=== PATIENT | female | born 1950 | race Caucasian/White ===

== ENCOUNTER → 2017-07-28 | Outpatient (CLI) | payer MEDICARE, OTHER ==
[~2017-07-28] MED LIST: ALEVE220 MG PO; ALKA-SELTZER H1 EACH PO; AMITRIPTYLINE H10 M3 PO; CHOLESTYRAMINE P4 GM PO; COLACE100 MG PO; ELIQUIS5 MG PO; FLAX OIL1000 MG PO; HYDROCHLOROTHIAZIDE; LISINOPRIL; LISINOPRIL-HCT1 EAC1 PO; OMEGA-31000 M1 PO; TRAMADOL 50 MG50 MG PO; TUMS PO; UNICOMPLEX M TA1 TA1 PO; VITAMIN D32000 UNI1 PO; VITAMIN D3400 UNIT PO; ZANTAC 150MG T150 MG PO
--- NOTE | 2017-08-03 08:35 | PAINCON ---
[facility] [address] [place] [address] PAIN MANAGEMENT CONSULTATION Name: DEEPIKA LENTZ [id number] Admission: 07/28/17 Attend Phys: Lana Yi MD Discharge: Date of : 50 Report #: [id number] THIS REPORT FOR: //name// CC: Eddie Yi DATE OF SERVICE: 07/28/2017 FOLLOWUP COMPLAINT: "Things were going pretty well, but the pain has returned." FOLLOWUP HISTORY: The patient is a 67-year-old female who has been followed in the pain clinic because of pain and discomfort in the anterior thigh area. She has undergone epidural steroid injections in the past. She finds that these have been beneficial. She did notice 100% relief after injections in the past. Over the last few months, she has noted some worsening of her pain and discomfort. It involves the anterior thigh area. She states that she noted a worsening of the pain over the last few weeks. She had gone with a family member to a tournament. There was a lot of driving to [place]. After getting in and out of the car many times, she noted some worsening of her pain and discomfort. Notes that her pain is worse when she is walking outside, particular if she is walking uphill, not so much when she is walking on the level. This pain is problematic and caused her to wake up in the night. She does continue to have some problems with fibromyalgia as well. She continues to walk with a cane. Denies any bowel or bladder dysfunction. Has not fallen since we saw her last. She would like to proceed at this juncture with another epidural steroid injection with the hopes that things would continue to improve and she would be more active with less discomfort. ALLERGIES: No known drug allergies. CURRENT MEDICATIONS: Include lisinopril/hydrochlorothiazide 10/12.5 daily, sodium bicarbonate/[place] for heartburn, was taking Elavil at bedtime and is not taking this medication, was taking Zantac 150 mg b.i.d., she is not taking this medication any longer either. PAIN CLINIC ASSESSMENT: 1. The patient has osteoarthritis in her shoulders as well as in her lower back. 2. Height 5 feet 6 inches, weight 256 pounds, BMI is 41.4. 3. Vital signs: Blood pressure 147/75, heart rate 69, respiratory rate 16, room air saturation is 97.0, temperature 98.1. 4. Pain intensity is judged to be 6/10, can rise to the level of 10/10. 5. Fall risk: The patient has not fallen in the last 3 months. She does walk with a cane. 6. Blood thinners: The [place] [address] PAIN MANAGEMENT CONSULTATION Name: DEEPIKA LENTZ Room: [facility]#: [id number] Admission: 07/28/17 Attend Phys: Lana Yi MD Discharge: Date of : 50 Report #: [id number] 7. Hypertension: The patient is being treated for hypertension. 8. Opioid use greater than 6 weeks: The patient is not receiving opioid medications for greater than 6 weeks. 9. Risk assessment tool. 10. Functional assessment tool: Pain impact score is 66/70 in regards to general activity, mood, walking ability, work, relationships with others, sleep, enjoyment of life. 11. Recreational drug use: The patient denies use of recreational drugs. 12. Tobacco use: The patient denies use of tobacco. 13. Alcohol: The patient drinks an alcoholic beverage maybe once monthly. PHYSICAL EXAMINATION: GENERAL: The patient is a well-developed, obese female. Appears her stated age. She is alert and oriented x 3. Affect appears appropriate. HEENT: Normocephalic, atraumatic. Extraocular eye muscles intact. No nasal discharge. Hearing within normal limits. NECK: Good range of motion without adenopathy. Abdomen is protuberant. MUSCULOSKELETAL: Normal alignment without significant scoliosis, kyphosis, or lordosis. Has reasonably normal gait, has pain and discomfort in the left anterior thigh in the L3-L4 distribution. Muscle bulk appears symmetrical bilaterally. Muscle strength is judged to be 5/5 for the major muscle groups of the lower extremities. IMPRESSION: 1. Lumbar radiculopathy involving the L3-L4 dermatomal distribution, which has improved with epidural steroid injections. 2. Hypertension. 3. History of ulcers and gastroesophageal reflux disease. 4. Morbid obesity. The patient states that she is trying to increase her activity. RECOMMENDATIONS: We discussed treatment options with the patient. The patient would like to proceed with an epidural steroid injection. Possible complication of the procedure were discussed. They include infection, increased muscle soreness, headache, bleeding, nerve damage, nerve weakness, pain improvement or no improvement in pain. The patient elects to proceed. PROCEDURE NOTE: The patient was placed in the prone position. After appropriate positioning on the table, her back was sterilely prepped with a Betadine solution. Fluoroscopy was used to identify the L3-L4 interspace. Anterior and posterior viewing was performed. Lateral viewing with fluoroscopy was also used. After an appropriate target area was noted, a 25-gauge needle was then advanced into the area. This area was infiltrated with 0.25% bupivacaine. A 17-gauge Tuohy with loss of resistance technique was used to gain access to the epidural space. There was no CSF, heme, or paresthesia. Total of 80 mg Depo-Medrol, 40 mg triamcinolone, and 2 mL of 0.25% [place] [address] PAIN MANAGEMENT CONSULTATION Name: DEEPIKA LENTZ Room: [facility]#: [id number] Admission: 07/28/17 Attend Phys: Lana Yi MD Discharge: Date of : 50 Report #: [id number] was injected. The patient tolerated the procedure well. A Band-Aid was placed. There was no bleeding. The patient was then escorted to the Recovery Room where she remained for an appropriate amount of time. She will follow up in the future as needed. We would like to thank you for letting us participate in her care. We hope she continues to improve. <ELECTRONICALLY SIGNED> By: Lana Yi MD 08/03/17 0835 1423 [id number]. Trevor Yi MD /RENATA
== END ==
LOC: M.PC 02:39
DX: M54.16 Radiculopathy, lumbar region (principal); M19.012 Primary osteoarthritis, left shoulder; M19.011 Primary osteoarthritis, right shoulder; M54.5 Low back pain; M79.7 Fibromyalgia; I10 Essential (primary) hypertension; E66.01 Morbid (severe) obesity due to excess calories; K21.9 Gastro-esophageal reflux disease without esophagitis

== ENCOUNTER 2018-01-23 07:45 | Inpatient (IN) | payer MEDICARE, OTHER ==
[2018-01-12 08:57] LABS: ABSOLUTE EOSINOPHILS 0.1 thou/uL (0.0-0.7); ABSOLUTE LYMPHOCYTES 1.2 thou/uL (0.8-5.3); ABSOLUTE MONOCYTES 0.5 thou/uL (0.0-1.2); ABSOLUTE NEUTROPHILS 2.7 thou/uL (1.6-8.1); BASOPHILS 0.5 %; EOSINOPHILS 2.8 %; HEMOGLOBIN 12.7 gm/dL (12.0-15.0); LYMPHOCYTES 25.8 %; MCH 31.4 pg (26.0-34.0); MCHC 33.3 g/dL (28.0-37.0); MCV 94.3 fL (80.0-100.0); MONOCYTES 11.8 %; MPV 7.7 fl. (7.2-11.1); NUCLEATED RBCS 0 /100WBC; PLATELET COUNT* 265 thou/uL (150-400); POLYS 59.1 %; RBC 4.03 mil/uL (4.20-5.00); RDW-CV 13.7 % (10.5-14.5); WBC 4.5 thou/uL (4.0-11.0)
[2018-01-12 09:09] LABS: APTT 26.9 Seconds (25.0-31.3); PROTIME 9.6 Seconds (9.20-11.50)
[2018-01-12 09:14] LABS: ALBUMIN 3.4 g/dL (3.4-5.0); CALCIUM 8.7 mg/dL (8.5-10.1); CREATININE 0.8 mg/dL (0.6-1.3); POTASSIUM 3.8 mmol/L (3.5-5.1); TOTAL BILIRUBIN 0.4 mg/dL (<0.1-1.0); TOTAL PROTEIN 7.1 g/dL (6.4-8.2)
[2018-01-12 10:10] LABS: ESR (SEDRATE) 48 mm/hr (0-30)
--- NOTE | 2018-01-12 11:42 | EKG ---
[place] [address] ELECTROCARDIOGRAM REPORT Name: DEEPIKA LENTZ Room: PRE IN [facility]#: [id number] Admission: Attend Phys: Desire Andrade Discharge: Date of : 50 Report #: [id number] THIS REPORT FOR: //name// [facility] Test Date: 2018-01-12 Test Time: 09:06:00 Pat Name: DEEPIKATELLO MEDINANES Department: Room: Gender: F Medical Doctor: : 1950 Requested By: Ministerio Beard Order Number: [id number] Reading MD: Jose R Goins Measurements Intervals [place] Rate: 74 P: 45 RI: 139 QRS: -7 QRSD: 97 T: 13 QT: 372 QTc: 413 Interpretive Statements Sinus rhythm No previous ECG available for comparison Electronically Signed On 01-12-2018 11:41:55 CDT by Jose R Goins [email or web address] <ELECTRONICALLY SIGNED> By: Jose R Goins MD, [facility] 01/12/18 1141 0906 0906 Jose R Goins MD, FACC /EPI
[2018-01-13 02:07] LABS: GLYCOHEMOGLOBIN (HGB A1C) 5.3 % (4.8-5.6)
[~2018-01-23] VITALS: Ht 167.6 cm; Wt 112.5 kg
[~2018-01-23 07:45] MED LIST changes: -COLACE100 MG PO; -ELIQUIS5 MG PO; -LISINOPRIL-HCT1 EAC1 PO
[2018-01-23 09:51] VITALS: BP 140/65
[2018-01-23 18:02] VITALS: BP 141/49
[2018-01-23 20:00] VITALS: BP 105/53
[2018-01-24] VITALS: BP 108/46
[2018-01-24 04:00] VITALS: BP 103/44
[2018-01-24 05:10] LABS: HEMATOCRIT 28.5 % (37.0-47.0); HEMOGLOBIN 9.6 gm/dL (12.0-15.0)
[2018-01-24 08:00] VITALS: BP 119/49
[2018-01-24] MEDS ORDERED: COLACE100 MG PO (10:16)
[2018-01-24] MEDS ORDERED: ELIQUIS5 MG PO (10:16)
[2018-01-24] MEDS ORDERED: LISINOPRIL-HCT1 EAC1 PO (12:10)
[2018-01-24 12:11] VITALS: BP 119/49
[2018-01-24 12:36] VITALS: BP 119/49
--- NOTE | 2018-02-02 17:44 | OP ---
[address] [address] OPERATIVE REPORT Name: DEEPIKA LENTZ Room: [address]#: [id number] Admission: 01/23/18 Attend Phys: Desire Andrade Discharge: 01/24/18 Date of : 50 Report #: [id number] THIS REPORT FOR: //name// CC: Mary Castro DICTATED BY: Teddy Gonzales DO DATE OF SERVICE: 01/23/2018 PREOPERATIVE DIAGNOSIS: Left hip degenerative joint disease. POSTOPERATIVE DIAGNOSIS: Left hip degenerative joint disease. PROCEDURE: Left total hip arthroplasty utilizing Biomet G7 total hip system with the following components: 1. 56 mm G7 finned acetabular shell. 2. 40 mm high wall G7 acetabular liner E1. 3. Size 9 micro Taperloc femoral stem, high offset. 4. 40 mm diameter ceramic head with a -3 mm neck. 5. 30 mm and 20 mm acetabular screws. SURGEON: Ministerio Beard DO COMPUTED TOMOGRAPHY TECHNICIAN: DO. Hilario Adler DO ANESTHESIA: General. ESTIMATED BLOOD LOSS: 250 mL. ANTIBIOTICS: 2 grams Ancef IV preoperatively. DRAINS: None. SPECIMENS: None. COMPLICATIONS: None. DISPOSITION: Stable to PACU and will be admitted to the hospital for standard postoperative care. INDICATION FOR PROCEDURE: The patient is a pleasant 67-year-old female who is seen in Orthopedic Clinic with complaints of chronic left hip pain. On x-ray, she was found to have advanced degenerative joint disease of her left hip. Pain was refractory to conservative measures consisting of oral anti-inflammatories, [address] [address] OPERATIVE REPORT Name: TORDEEPIKA L Room: [address]#: [id number] Admission: 01/23/18 Attend Phys: Desire Andrade Discharge: 01/24/18 Date of : 50 Report #: [id number] activity modifications and home physical therapy exercises for much greater than 6 months' duration. Therefore, recommended proceeding with a left total hip arthroplasty. Risks, benefits, complications, indications and alternative treatments were discussed and the patient wished to proceed with surgery today. DESCRIPTION OF PROCEDURE: The patient was seen in the preoperative holding area. Correct operative site, left hip was initialed. The patient was taken back to the operating suite, placed in the supine position on the operating table, given benefit of general anesthetic. The patient was positioned in the normal fashion on the [place] hip traction table. A well-padded perineal post was placed in a normal fashion. The patient was placed in the traction boots bilaterally. Left hip was then prepped and draped in typical fashion. Surgery began with a timeout identifying correct patient, correct procedure, correct operative site, preoperative antibiotics and correct performing surgeon. Next, standard anterior hip incision was made starting roughly 2 cm distal and 2 cm lateral to the ASIS and extending distally in a longitudinal type fashion angling roughly 30 degrees towards the lateral aspect of the thigh. A skin incision was made with a 10 blade scalpel roughly 8 cm in length. Sharp dissection was taken down to the level of the tensor fascia. Next, a deep new 10 blade scalpel was used to incise the tensor fascia and this incision was extended both proximally and distally using Metzenbaum scissors. Next, we were able to elevate our medial fascia and find our standard interval between the sartorius and the tensor fascia ericka muscle. It was bluntly dissected. Next appropriate retraction was performed for both our medial and lateral aspects of the wound. We were able to identify our anterior circumflex vessels. These were cauterized utilizing Aquamantys cautery. Fascial planes were dissected in the entirety of the wound in a longitudinal fashion using electrocautery. Next, a pericapsular fat was encountered. The indirect head of the rectus was elevated from the anterior aspect of the capsule after placing our #7 and #6 retractors in the superior and inferior aspects of the femoral neck extracapsularly. Next #9 retractor was placed in a normal fashion over the anterior rim of the anterior column roughly directed towards contralateral shoulder. Next, our standard capsulectomy was performed after cauterizing the capsule with Aquamantys. Next, a standard neck cut was performed 1 cm proximal to the lesser trochanter going directly off of from our saddle region just proximal to the intertrochanteric ridge. A saw was used to make the neck cut in the normal fashion and a second cut was made more proximally performing the napkin ring technique. This wafer of bone was removed using a bone tenaculum and the head was removed using two bone tenaculums. Next, retractors were positioned around the acetabulum in the normal fashion. Any existing labrum and soft tissue surrounding the acetabular rim was excised using electrocautery. One step reaming was performed. We reamed with a size 55 mm reamer under fluoroscopy, first medialized and then more in our final position direction. We had great bleeding cancellous bone. Next, we inserted our final acetabular shell, size 56 mm, was impacted into place and appeared [place] [address] OPERATIVE REPORT Name: DEEPIKA LENTZ Room: [address]#: [id number] Admission: 01/23/18 Attend Phys: Desire Andrade Discharge: 01/24/18 Date of : 50 Report #: [id number] We did go ahead and insert two acetabular screws in the normal fashion in the posterior superior quadrant. Next, our acetabular high wall liner was impacted into place with the high wall pointing anterior superiorly. Next, #5 and #8 retractors were utilized in a normal fashion to expose our proximal femur. We released inferior medial capsule down to the level of the lesser in the normal fashion using electrocautery. We also performed our standard posterolateral release, excised any remaining capsule in this region. Next, the hip was externally rotated, extended and adducted. We had adequate exposure and access to our proximal femur. We started with the box osteotome followed by the canal finder and lateralizer. Next we performed sequential broaching of our proximal femur using our femoral stem broaches. We got up to a size 9, which seemed to have appropriate fit in the appropriate anteversion. We trialled a -3 mm neck and a size 40 mm head, felt to have great stability throughout range of motion in all planes and felt to have a nearly symmetric leg lengths upon fluoroscopy. Therefore, a trial femoral stem was removed. Final femoral stem was impacted into place in the normal fashion and final head and neck construct were impacted into place as well. The final reduction was performed at this time. Again checked for stability and had great stability throughout range of motion. Final radiographs were performed identifying nearly equal leg lengths and nearly symmetric offset. Next, the wound was thoroughly irrigated. Standard cocktail was injected in the surrounding musculature and subcutaneous tissues. Tensor and sartorius fascia was reapproximated utilizing #1 Stratafix running suture. Subcutaneous tissues were closed in a simple inverted fashion with 2-0 Monocryl suture. Subcuticular layer was closed in a running fashion with 3-0 Stratafix suture. Dermabond was applied as skin glue. Standard dressings were applied consisting of Mepilex. The patient was weaned from general anesthetic and transferred in stable condition to PACU. All sponge and needle counts were correct x 2. <ELECTRONICALLY SIGNED> By: Ministerio Beard DO 02/02/18 1744 1610 [id number] Beard DO /alvarado
== END 2018-01-24 13:25 | disposition home health service (06) | DRG 469 ==
LOC: M.PRE 07:45 → M.2W 08:56 → M.ORTHSURG 08:56 → M.TBA 08:56 → M.PRE 08:58 → M.ORTHSURG 15:04 → M.2W 17:26
PROVIDERS: Orthopaedic Surgery; ADMIT Internal Medicine
PROC: 5A09357 Assistance with Respiratory Ventilation, Less than 24 Consecutive Hours, Continuous Positive Airway Pressure (ICD-10-PCS; principal; 2018-01-23)
PROC: 0SRB01Z Replacement of Left Hip Joint with Metal Synthetic Substitute, Open Approach (ICD-10-PCS; principal; 2018-01-23)
DX: M16.12 Unilateral primary osteoarthritis, left hip (principal); J96.01 Acute respiratory failure with hypoxia; G89.29 Other chronic pain; K21.9 Gastro-esophageal reflux disease without esophagitis; I10 Essential (primary) hypertension; G47.30 Sleep apnea, unspecified; M54.16 Radiculopathy, lumbar region; M79.7 Fibromyalgia; Z90.710 Acquired absence of both cervix and uterus; Z98.49 Cataract extraction status, unspecified eye; Z90.49 Acquired absence of other specified parts of digestive tract; Z79.899 Other long term (current) drug therapy

== ENCOUNTER → 2018-11-22 | Outpatient (CLI) | payer MEDICARE, OTHER ==
[~2018-11-22] MED LIST changes: +COLACE100 MG PO; +ELIQUIS5 MG PO; +LISINOPRIL-HCT1 EAC1 PO
[2018-11-22 15:41] LABS: ABSOLUTE EOSINOPHILS 0.1 thou/uL (0.0-0.7); ABSOLUTE LYMPHOCYTES 1.4 thou/uL (0.8-5.3); ABSOLUTE MONOCYTES 0.5 thou/uL (0.0-1.2); ABSOLUTE NEUTROPHILS 3.4 thou/uL (1.6-8.1); BASOPHILS 0.5 %; EOSINOPHILS 1.9 %; HEMATOCRIT 37.6 % (37.0-47.0); HEMOGLOBIN 12.5 gm/dL (12.0-15.0); LYMPHOCYTES 25.5 %; MCH 31.5 pg (26.0-34.0); MCHC 33.2 g/dL (28.0-37.0); MCV 94.8 fL (80.0-100.0); MONOCYTES 9.8 %; MPV 8.1 fl. (7.2-11.1); NUCLEATED RBCS 0 /100WBC; PLATELET COUNT* 262 thou/uL (150-400); POLYS 62.3 %; RBC 3.96 mil/uL (4.20-5.00); RDW-CV 13.7 % (10.5-14.5); WBC 5.4 thou/uL (4.0-11.0)
[2018-11-22 15:50] LABS: ALBUMIN 3.4 g/dL (3.4-5.0); CALCIUM 9.2 mg/dL (8.5-10.1); CREATININE 0.8 mg/dL (0.6-1.3); POTASSIUM 3.8 mmol/L (3.5-5.1); TOTAL BILIRUBIN 0.4 mg/dL (<0.1-1.0); TOTAL PROTEIN 6.9 g/dL (6.4-8.2)
== END ==
LOC: M.LAB 15:20
PROVIDERS: Internal Medicine Gastroenterology
DX: K76.0 Fatty (change of) liver, not elsewhere classified (principal)

== ENCOUNTER 2020-03-14 19:50 | Emergency (ER) | payer MEDICARE, OTHER ==
[~2020-03-14] VITALS: Ht 165.1 cm; Wt 117.9 kg
[2020-03-14 20:26] LABS: URINE BILIRUBIN NEGATIVE (Negative); URINE BLOOD NEGATIVE (Negative); URINE COLOR YELLOW; URINE GLUCOSE-RANDOM NEGATIVE (Negative); URINE KETONES NEGATIVE (Negative); URINE NITRITE-REFLEX NEGATIVE (Negative); URINE PROTEIN NEGATIVE (Negative); URINE UROBILINOGEN 0.2 E.U./dl (0.2-1.0)
[2020-03-14 20:46] LABS: URINE CLARITY HAZY; URINE LEUKOCYTES-REFLEX 3+ (Negative)
[2020-03-14 21:03] LABS: BACTERIA-REFLEX >30 Many /HPF (None Seen); CASTS None Seen /LPF (None Seen); CRYSTALS None Seen /LPF (None Seen); SQUAMOUS >10 Many /LPF (0-3); URINE RBC None Seen /HPF (0-2); URINE WBC-REFLEX 0-5 Rare /HPF (0-5)
[2020-03-14 21:04] LABS: ABSOLUTE EOSINOPHILS 0.1 thou/uL (0.0-0.7); ABSOLUTE LYMPHOCYTES 1.8 thou/uL (0.8-5.3); ABSOLUTE MONOCYTES 0.7 thou/uL (0.0-1.2); ABSOLUTE NEUTROPHILS 3.2 thou/uL (1.6-8.1); BASOPHILS 0.5 %; EOSINOPHILS 1.9 %; HEMATOCRIT 36.4 % (37.0-47.0); HEMOGLOBIN 12.2 gm/dL (12.0-15.0); LYMPHOCYTES 30.5 %; MCH 32.1 pg (26.0-34.0); MCHC 33.5 g/dL (28.0-37.0); MCV 95.7 fL (80.0-100.0); MONOCYTES 12.2 %; MPV 7.9 fl. (7.2-11.1); NUCLEATED RBCS 0 /100WBC; PLATELET COUNT* 250 thou/uL (150-400); POLYS 54.9 %; RBC 3.81 mil/uL (4.20-5.00); RDW-CV 13.2 % (10.5-14.5); WBC 5.7 thou/uL (4.0-11.0)
[2020-03-14 21:09] LABS: CREATININE 1.1 mg/dL (0.6-1.3); POTASSIUM 3.6 mmol/L (3.5-5.1)
[2020-03-14 21:14] LABS: ALBUMIN 3.8 g/dL (3.4-5.0); TOTAL BILIRUBIN 0.4 mg/dL (<0.1-1.0); TOTAL PROTEIN 7.4 g/dL (6.4-8.2)
[2020-03-14] MEDS ORDERED: CARAFATE 1 GM TA1 GM PO (23:59)
[2020-03-15 00:12] VITALS: BP 108/64
== END 2020-03-15 00:12 | disposition home or self-care (01) ==
LOC: M.ERS 19:50
PROVIDERS: Personal Emergency Response Attendant
DX: K62.5 Hemorrhage of anus and rectum (principal); I10 Essential (primary) hypertension; M79.7 Fibromyalgia; Z98.890 Other specified postprocedural states; Z90.49 Acquired absence of other specified parts of digestive tract; Z79.899 Other long term (current) drug therapy; Z90.710 Acquired absence of both cervix and uterus

== ENCOUNTER → 2020-03-18 | Outpatient (CLI) | payer MEDICARE, OTHER ==
[~2020-03-18] MED LIST changes: +CARAFATE 1 GM TA1 GM PO
[2020-03-18 08:38] LABS: ABSOLUTE EOSINOPHILS 0.1 thou/uL (0.0-0.7); ABSOLUTE LYMPHOCYTES 1.1 thou/uL (0.8-5.3); ABSOLUTE MONOCYTES 0.6 thou/uL (0.0-1.2); ABSOLUTE NEUTROPHILS 2.9 thou/uL (1.6-8.1); BASOPHILS 0.6 %; EOSINOPHILS 2.1 %; HEMATOCRIT 35.8 % (37.0-47.0); HEMOGLOBIN 11.8 gm/dL (12.0-15.0); LYMPHOCYTES 23.3 %; MCH 31.8 pg (26.0-34.0); MCHC 33.1 g/dL (28.0-37.0); MONOCYTES 12.8 %; MPV 7.6 fl. (7.2-11.1); NUCLEATED RBCS 0 /100WBC; PLATELET COUNT* 259 thou/uL (150-400); POLYS 61.2 %; RBC 3.72 mil/uL (4.20-5.00); RDW-CV 13.2 % (10.5-14.5); WBC 4.8 thou/uL (4.0-11.0)
== END ==
LOC: M.LAB 08:13
PROVIDERS: ATTEND Internal Medicine Gastroenterology
DX: K62.5 Hemorrhage of anus and rectum (principal)

== ENCOUNTER → 2020-04-04 | Outpatient (CLI) | payer MEDICARE, OTHER ==
[~2020-04-04] MED LIST changes: +LISINOPRIL2.5 MG PO; +NEURONTIN 300M300 M2 PO; +OMEPRAZOLE40 MG PO; +PREDNISONE 20 M20 M1 PO; +ZOFRAN ODT4 MG SUBLING; +ZPAK PO
== END ==
LOC: M.RAD 08:48
PROVIDERS: ATTEND Internal Medicine Gastroenterology
DX: K62.5 Hemorrhage of anus and rectum (principal); K57.30 Diverticulosis of large intestine without perforation or abscess without bleeding

== ENCOUNTER 2020-04-06 09:55 | Emergency (ER) | payer MEDICARE, OTHER ==
[~2020-04-06] VITALS: Ht 162.6 cm; Wt 113.4 kg
[~2020-04-06 09:55] MED LIST changes: -LISINOPRIL2.5 MG PO; -NEURONTIN 300M300 M2 PO; -OMEPRAZOLE40 MG PO; -PREDNISONE 20 M20 M1 PO; -ZOFRAN ODT4 MG SUBLING; -ZPAK PO
[2020-04-06] MEDS ORDERED: OMEPRAZOLE40 MG PO (10:08)
[2020-04-06] MEDS ORDERED: LISINOPRIL2.5 MG PO (10:08)
[2020-04-06] MEDS ORDERED: NEURONTIN 300M300 M2 PO (10:09)
[2020-04-06] MEDS ORDERED: ZOFRAN ODT4 MG SUBLING (12:04)
[2020-04-06] MEDS ORDERED: ZPAK PO (12:04)
[2020-04-06] MEDS ORDERED: PREDNISONE 20 M20 M1 PO (12:04)
[2020-04-06 12:16] VITALS: BP 121/72
== END 2020-04-06 12:16 | disposition home or self-care (01) ==
LOC: M.ERS 09:55
DX: U07.1 COVID-19 (principal); I10 Essential (primary) hypertension; M79.7 Fibromyalgia; Z90.89 Acquired absence of other organs; Z90.710 Acquired absence of both cervix and uterus

== ENCOUNTER 2020-04-10 13:35 | Inpatient (IN) | payer MEDICARE, OTHER ==
[~2020-04-10] VITALS: Ht 162.6 cm; Wt 114.4 kg
[~2020-04-10 13:35] MED LIST changes: +LISINOPRIL2.5 MG PO; +NEURONTIN 300M300 M2 PO; +OMEPRAZOLE40 MG PO; +PREDNISONE 20 M20 M1 PO; +ZOFRAN ODT4 MG SUBLING; +ZPAK PO
[2020-04-10 13:45] VITALS: BP 105/60
[2020-04-10 15:26] LABS: ABSOLUTE LYMPHOCYTES 0.6 thou/uL (0.8-5.3); ABSOLUTE MONOCYTES 0.4 thou/uL (0.0-1.2); ABSOLUTE NEUTROPHILS 10.8 thou/uL (1.6-8.1); BASOPHILS 0.1 %; HEMATOCRIT 37.9 % (37.0-47.0); HEMOGLOBIN 12.6 gm/dL (12.0-15.0); LYMPHOCYTES 5.1 %; MCH 31.4 pg (26.0-34.0); MCHC 33.2 g/dL (28.0-37.0); MCV 94.7 fL (80.0-100.0); MONOCYTES 3.1 %; MPV 8.5 fl. (7.2-11.1); NUCLEATED RBCS 0 /100WBC; PLATELET COUNT* 202 thou/uL (150-400); POLYS 91.7 %; RBC 4.01 mil/uL (4.20-5.00); RDW-CV 13.5 % (10.5-14.5); WBC 11.8 thou/uL (4.0-11.0)
[2020-04-10 15:45] LABS: CALCIUM 8.2 mg/dL (8.5-10.1); CREATININE 1.2 mg/dL (0.6-1.3); POTASSIUM 3.7 mmol/L (3.5-5.1)
[2020-04-10 15:57] LABS: ALBUMIN 2.9 g/dL (3.4-5.0); TOTAL BILIRUBIN 0.5 mg/dL (<0.1-1.0); TOTAL PROTEIN 6.8 g/dL (6.4-8.2)
[2020-04-10 19:30] VITALS: BP 107/45
[2020-04-10 20:37] VITALS: BP 96/40
[2020-04-10 21:59] VITALS: BP 105/56
[2020-04-10 22:33] VITALS: BP 113/58
[2020-04-11 00:55] LABS: URINE BILIRUBIN NEGATIVE (Negative); URINE BLOOD NEGATIVE (Negative); URINE CLARITY CLEAR; URINE COLOR YELLOW; URINE GLUCOSE-RANDOM NEGATIVE (Negative); URINE KETONES NEGATIVE (Negative); URINE NITRITE-REFLEX NEGATIVE (Negative); URINE PROTEIN NEGATIVE (Negative); URINE UROBILINOGEN 0.2 E.U./dl (0.2-1.0)
[2020-04-11 00:57] LABS: URINE LEUKOCYTES-REFLEX 2+ (Negative)
[2020-04-11 01:17] LABS: BACTERIA-REFLEX >30 Many /HPF (None Seen); CRYSTALS None Seen /LPF (None Seen); FINE GRANULAR CASTS 0-3 Few /LPF (None Seen); HYALINE CASTS 0-3 Few /LPF (None Seen); MUCUS 4-6 Moderate strn/LPF (None Seen); SQUAMOUS 4-10 Moderate /LPF (0-3); TRANSITIONAL EPITHEL CELL 0-3 Few /LPF (None Seen); URINE WBC-REFLEX >25 Many /HPF (0-5)
[2020-04-11 04:41] VITALS: BP 114/41
[2020-04-11 05:32] LABS: HEMATOCRIT 35.1 % (37.0-47.0); HEMOGLOBIN 11.6 gm/dL (12.0-15.0); MCH 31.7 pg (26.0-34.0); MCHC 33.2 g/dL (28.0-37.0); MCV 95.5 fL (80.0-100.0); MPV 8.4 fl. (7.2-11.1); NUCLEATED RBCS 0 /100WBC; PLATELET COUNT* 164 thou/uL (150-400); RBC 3.67 mil/uL (4.20-5.00); RDW-CV 13.4 % (10.5-14.5); WBC 10.8 thou/uL (4.0-11.0)
[2020-04-11 05:48] LABS: CALCIUM 8.1 mg/dL (8.5-10.1); CREATININE 1.1 mg/dL (0.6-1.3); POTASSIUM 3.7 mmol/L (3.5-5.1)
[2020-04-11 07:13] LABS: ABSOLUTE LYMPHOCYTES 0.6 thou/uL (0.8-5.3); ABSOLUTE MONOCYTES 0.2 thou/uL (0.0-1.2); ABSOLUTE NEUTROPHILS 9.9 thou/uL (1.6-8.1); METAMYELOCYTES 2 %; PLATELET ESTIMATE ADEQUATE
[2020-04-11 08:00] VITALS: BP 104/49
--- NOTE | 2020-04-11 09:17 | EKG ---
[place] [address] ELECTROCARDIOGRAM REPORT Name: DEEPIKA LENTZ Room: [address] ADM IN [facility].#: [id number] Admission: 04/10/20 Attend Phys: Сергей Zuniga, Discharge: Date of : 50 Date of Service: 04/10/20 1351 Report #: [id number] THIS REPORT FOR: //name// [facility] ED Test Date: 2020-04-10 Test Time: 13:51:06 Pat Name: DEEPIKA LENTZ Department: Room: [facility] Gender: F [employer] T[employer] Trimmer: [facility] : 1950 Requested By: Latoya Traore Order Number: [id number] MD: Piotr Chung Measurements Intervals [place] Rate: 79 P: 28 ID: 134 QRS: -15 QRSD: 118 T: 0 QT: 374 QTc: 429 Interpretive Statements Sinus rhythm Nonspecific intraventricular conduction delay Inferior infarct, old possible Compared to ECG 01/12/2018 09:06:00 Intraventricular conduction delay now present Myocardial infarct finding now present Electronically Signed On 04-11-2020 9:17:48 DIE SET UP WORKER by Piotr Chung [email or web address] <ELECTRONICALLY SIGNED> By: Piotr Chung MD, FACC 04/11/20 0917 1351 1351 Piotr Chung MD, FACC /EPI
--- NOTE | 2020-04-11 10:36 | NUR ---
RECIEVED REPORT AROUND 0730. ASSUMED CARE. VS AND ASSESSMENT CHARTED PT LYING IN BED DURING ASSESSMENT. PT ABLE UP WITH ASSIST WITH A CANE. STABLE TO FEET. STAND BY ASSIST. MEDS GIVEN THIS AM PER JUL. NO COMPLAINTS OF PAIN. IV INTACT LEFT WRIST. NOTED SOME PUFFINESS AROUND IV AREA. PT STATED "IT DOES NOT HURT" WILL MONITOR CLOSELY. HEART MONITOR ATTACHED AT SB. ASYMPTOMATIC. CALL LIGHT WITHIN REACH. WILL CONTINUE TO MONITOR.
--- NOTE | 2020-04-11 11:27 | NUR ---
Nutrition: Consult received for wt loss and lack of appetite. Spoke with RN: pt ate all of her BKFST this morning. Per [employer], usual wt was 248# and now down to 235# - mild loss. Meds noted, Labs: BG 159, albumin 2.9. H/o OBE. Regular/special precautions tray. 2L NC. Mild risk at this time. Will follow po intake, labs, wt 04/16/20.
--- NOTE | 2020-04-11 15:00 | NUR ---
GAVE PTS NURSE DPOA/AD PAPERWORK TO GIVE TO PT,WHEN SHE WENT BACK INTO ISOLATION. TOLD HER TO LET HER KNOW NOT TO SIGN UNTIL SHE IS OUT OF ISOLATION AND NOTARY CAN BE PRESENT.
--- NOTE | 2020-04-11 15:00 | NUR ---
SPOKE WITH PT.ON PHONE. SHE WAS ALERT AND ORIENTED. LIVES WITH . HAS A CPAP AT HOME. NO O2. USES A CANE. HAS A WALKER FROM PAST KNEE SURGERY BUT DOESN'T USE. HX OF [facility] FOR HH. NO HX OF SNF. SHE SI NORMALLY IDNEPENDENT AT HOME. POSSIBLE NEED FOR HH AT DISCHARGE.
[2020-04-11 15:03] LABS: CALCIUM 9.1 mg/dL (8.5-10.1); MAGNESIUM 2.1 mg/dL (1.8-2.4); POTASSIUM 3.6 mmol/L (3.5-5.1)
--- NOTE | 2020-04-11 17:33 | NUR ---
PT DANGLING FEET AT BEDSIDE FOR DINNER. IV INTACT. HEART MONITOR ATTACHED. MEDS PER JUL. HOURLY ROUNDING PERFORMED. PT SAT IN CHAIR FOR A LITTLE WHILE THIS SHIFT. NO COMPLAINTS OF PAIN. O2 SAT 88% ON RA. DR VAZQUEZ NOTIFIED. PT IS ON 2L NC. [facility]. WILL CONTINUE TO TR.
[2020-04-11 18:11] VITALS: BP 125/61
[2020-04-11 20:00] VITALS: BP 133/58
[2020-04-12 01:37] VITALS: BP 127/53; BP 129/62; BP 132/55
[2020-04-12 04:00] VITALS: BP 119/52
[2020-04-12 05:28] LABS: ABSOLUTE LYMPHOCYTES 0.4 thou/uL (0.8-5.3); ABSOLUTE MONOCYTES 0.3 thou/uL (0.0-1.2); ABSOLUTE NEUTROPHILS 10.8 thou/uL (1.6-8.1); HEMATOCRIT 33.3 % (37.0-47.0); HEMOGLOBIN 11.1 gm/dL (12.0-15.0); LYMPHOCYTES 3.3 %; MCH 31.4 pg (26.0-34.0); MCHC 33.3 g/dL (28.0-37.0); MCV 94.4 fL (80.0-100.0); MONOCYTES 2.7 %; MPV 8.8 fl. (7.2-11.1); NUCLEATED RBCS 0 /100WBC; PLATELET COUNT* 196 thou/uL (150-400); RBC 3.53 mil/uL (4.20-5.00); RDW-CV 13.5 % (10.5-14.5); WBC 11.5 thou/uL (4.0-11.0)
[2020-04-12 05:53] LABS: ALBUMIN 2.4 g/dL (3.4-5.0); CALCIUM 8.2 mg/dL (8.5-10.1); MAGNESIUM 1.8 mg/dL (1.8-2.4); POTASSIUM 4.3 mmol/L (3.5-5.1); TOTAL BILIRUBIN 0.3 mg/dL (<0.1-1.0); TOTAL PROTEIN 6.1 g/dL (6.4-8.2)
[2020-04-12 07:50] VITALS: BP 116/48
[2020-04-12 16:00] VITALS: BP 121/54
--- NOTE | 2020-04-12 17:22 | NUR ---
PT A&OX4 VSS. IV TO RAC PATENT. IV ABX ADMINISTERED THIS SHIFT. 10L O2 BY NASAL CANNULA, SAT 90-91%. PT DENIES PAIN OR DISTRESS AT THIS TIME. CTA THIS SHIFT, PT SERVED LUNCH FOLLOWING PROCEDURE. PT REMAINS CONTINENT OF B/B. UP TO BSC. NO VISIBLE SKIN ISSUES. PT ATE DINNER NO C/O N/V. PT RESTS IN BED WITH CALL LIGHT AND PHONE IN REACH. FAMILY UPDATED BY PHONE THIS AFTERNOON. WILL CONTINUE TO MONITOR
[2020-04-12 20:00] VITALS: BP 148/82
[2020-04-13 00:27] VITALS: BP 138/75; BP 176/45
[2020-04-13 04:58] VITALS: BP 156/70
[2020-04-13 07:45] VITALS: BP 135/63
[2020-04-13 14:50] LABS: ABSOLUTE LYMPHOCYTES 0.6 thou/uL (0.8-5.3); ABSOLUTE MONOCYTES 0.7 thou/uL (0.0-1.2); ABSOLUTE NEUTROPHILS 10.6 thou/uL (1.6-8.1); BASOPHILS 0.1 %; HEMATOCRIT 36.4 % (37.0-47.0); MCH 31.2 pg (26.0-34.0); MCHC 32.9 g/dL (28.0-37.0); MONOCYTES 5.7 %; MPV 8.5 fl. (7.2-11.1); NUCLEATED RBCS 0 /100WBC; PLATELET COUNT* 263 thou/uL (150-400); POLYS 89.2 %; RBC 3.83 mil/uL (4.20-5.00); RDW-CV 13.8 % (10.5-14.5); WBC 11.9 thou/uL (4.0-11.0)
[2020-04-13 15:02] LABS: ALBUMIN 2.4 g/dL (3.4-5.0); CALCIUM 8.7 mg/dL (8.5-10.1); CREATININE 0.9 mg/dL (0.6-1.3); POTASSIUM 3.8 mmol/L (3.5-5.1); TOTAL BILIRUBIN 0.3 mg/dL (<0.1-1.0); TOTAL PROTEIN 5.9 g/dL (6.4-8.2)
--- NOTE | 2020-04-13 17:24 | NUR ---
PT A&OX4 VSS. PT UP TO RECLINER THIS SHIFT. IV TO RAC PATENT. O2 NEEDS CONTINUE TO BE MONITORED. PT ON 12L BY NC. SATS IN 90s. PT REQUESTED ASSIST WITH WASHING UP AND BRUSHING TEETH AFTER BREAKFAST. PT REMAINS CONTINENT OF B/B. PT DENIES PAIN. PT RESTING IN BED WITH CALL LIGHT AND PHONE IN REACH, WILL CONTINUE TO MONITOR.
[2020-04-13 20:00] VITALS: BP 161/50
[2020-04-13 20:08] LABS: BE 0.8 mmol/L (-2 to +3); PCO2 36.9 mmHg (35.0-45.0); pH 7.442 (7.340-7.450)
[2020-04-13 20:21] LABS: PO2 187.1 mmHg (75.0-100.0)
[2020-04-14] VITALS (7 sets, daily range): BP systolic 133–165; BP diastolic 51–69
--- NOTE | 2020-04-14 04:38 | NUR ---
ASSUMED PT CARE AT APPROX 1930. PT IS AWAKE AND ORIENTED X4. PT IS ON THE BIPAP WITH FIO2 OF 100%, APPEARED TO BE STILL HAVING LABORED BREATHING. ABG OBTAINED BY RT,FiO2 DECREASED TO 80% AFTER HAVING A CRITICAL pO2 OF 187.1. spO2 REMAINED IN THE UPPER 90's. LASIX IV GIVEN WELL WITH GOOD RESULTS. PT IS MONITORED CLOSELY. FALL PRECAUTIONS IN PLACE. CALL LIGHT WITHIN REACH.
[2020-04-14 05:02] LABS: HEMATOCRIT 36.3 % (37.0-47.0); HEMOGLOBIN 11.9 gm/dL (12.0-15.0); MCH 31.2 pg (26.0-34.0); MCHC 32.8 g/dL (28.0-37.0); MCV 95.2 fL (80.0-100.0); MPV 8.4 fl. (7.2-11.1); NUCLEATED RBCS 0 /100WBC; PLATELET COUNT* 239 thou/uL (150-400); RBC 3.81 mil/uL (4.20-5.00); WBC 8.1 thou/uL (4.0-11.0)
[2020-04-14 05:21] LABS: ALBUMIN 2.4 g/dL (3.4-5.0); CALCIUM 8.3 mg/dL (8.5-10.1); CREATININE 0.8 mg/dL (0.6-1.3); POTASSIUM 4.1 mmol/L (3.5-5.1); TOTAL BILIRUBIN 0.4 mg/dL (<0.1-1.0)
[2020-04-14 05:35] LABS: PREALBUMIN 16.3 mg/dL (18.0-35.7)
[2020-04-14 05:50] LABS: ABSOLUTE LYMPHOCYTES 1.4 thou/uL (0.8-5.3); ABSOLUTE MONOCYTES 0.6 thou/uL (0.0-1.2); ABSOLUTE NEUTROPHILS 6.1 thou/uL (1.6-8.1); ANISOCYTOSIS 1+; MYELOCYTES 1 %; PLATELET ESTIMATE ADEQUATE
[2020-04-14 05:51] LABS: POIKILOCYTOSIS 1+
--- NOTE | 2020-04-14 07:59 | CON ---
[address] [address] CONSULTATION Name: TORDEEPIKA IFRAH Room: [address] IN .R.#: [id number] Admission: 04/10/20 Attend Phys: Сергей Zuniga MD Discharge: Date of : 50 Report #: [id number] THIS REPORT FOR: //name// cc: Jessenia Spencer MD, Lin W. MD ~ DATE OF SERVICE: 04/11/2020 CONSULT REQUESTED BY: Сергей Zuniga MD INDICATION FOR CONSULTATION: COVID-19. HISTORY OF PRESENT ILLNESS: A 69-year-old female. She does have a history of morbid obesity, body mass index is 40.3. She also does have a history of sleep apnea and uses a CPAP at night. The patient was recently diagnosed with COVID-19. She has had some shortness of breath as well as cough with minimal sputum production. Also, has had headache and has been checking her oxygen saturation at home. She has received antibiotics as well as steroids at home. The patient reported that her O2 saturation was dipping down to 90% on the pulse oximeter, which is the reason that she came to the Emergency Room. Her O2 saturation in fact was verified at 90% in the Emergency Room. She since then has been on supplemental oxygen 2 liters and is maintaining O2 saturation in the 90s. There are no new overnight issues reported. The patient does not have fever or chills. Her blood pressure is on the lower side. She is on normal saline. REVIEW OF SYSTEMS: For 12 points is negative except as mentioned above. PAST MEDICAL HISTORY: Obstructive sleep apnea, on CPAP, hysterectomy, gallbladder surgery, knee surgery, cataract surgery, tonsillectomy, colon resection, left little toe surgery, hypertension, hernia repair, fibromyalgia, lumbar radiculopathy. SOCIAL HISTORY: Lifetime nonsmoker. No known history of heavy alcohol use or illegal drug use. CURRENT MEDICATIONS: List in [employer] reviewed. HOME MEDICATIONS: In [employer] reviewed. ALLERGIES: No known drug allergies. FAMILY HISTORY: No pertinent family history. PHYSICAL EXAMINATION: GENERAL: She is alert, awake and oriented, does not appear to be in any distress. O2 saturations have been in the 90s. She is on 2 [place] [address] CONSULTATION Name: DEEPIKA LENTZ Room: [address]#: [id number] Admission: 04/10/20 Attend Phys: Сергей Zuniga MD Discharge: Date of : 50 Report #: [id number] cannula. and a blood pressure is on the lower side at 104/49. Her respiratory rate is 55. She is afebrile at this time with a temperature of 36.4. Body mass index is elevated to 40.3. HEENT: Head is normocephalic and atraumatic. NECK: Does not show raised JVP, asymmetry, mass or lymph nodes. CHEST: Symmetrical expansion on inspection and palpation. On auscultation, breath sounds are mildly decreased bilaterally. No added sounds. HEART: Regular. There is no murmur. ABDOMEN: Soft and nontender. EXTREMITIES: Lower extremities show trace edema, no calf tenderness. SKIN: Dry and intact. NEUROLOGICAL: Moves all extremities bilaterally equally and spontaneously with no focal deficit identified. LABORATORY DATA: The patient's chest x-ray from yesterday is reviewed and it does show bilateral pulmonary infiltrates consistent with COVID-19. I suspect that there is secondary bacterial infection as well considering that there is a lobar infiltrate in the left lower lobe. There is no increase in pulmonary vascular congestion. ASSESSMENT AND PLAN: 1. Acute hypoxemic respiratory failure secondary to COVID-19. I recommend continuing with dexamethasone as currently prescribed. We will follow her O2 saturations closely. We will in fact to take her off oxygen and assess her oxygen saturations on room air and then assess as to how strong a case we have to start her on remdesivir. In case the patient continues to require oxygen to maintain O2 saturations above 90% or in case, her room air O2 saturation is still less than 94%, then my understanding of the current literature is that she would meet criteria of use of remdesivir. In fact, remdesivir is reported to be more beneficial in patients who require low flow oxygen. So if these criteria are met, then in that case, I would recommend use of remdesivir favor holding off on use of convalescent plasma at this time unless her condition deteriorates, in which case, I would certainly recommend the same. Also, agree with nebulized bronchodilators. 2. Pulmonary infiltrates. There is a lobar infiltrate in the left lower lobe. Therefore, I suspect that there is a secondary bacterial infection as well. Considering the patient has been on azithromycin at home. I went ahead and switched this over to doxycycline. We will continue with ceftriaxone. 3. Obstructive sleep apnea. She is using her home CPAP at night. 4. Hypertension/fluid and electrolytes. Her blood pressure now is on the lower side. Therefore, for now, I discontinued her lisinopril recommend restarting the same if the blood pressure is higher later. If the blood pressure remains within the normal range, then I will be perhaps inclined to run her on the kier drier side, I would repeat labs now and see where we stands. 5. Evaluation for thromboembolic phenomena. We will go ahead and do a D-dimer if elevated, then we will assess as to whether further investigations are [address] [address] CONSULTATION Name: DEEPIKA LENTZ Room: [address] IN ..#: [id number] Admission: 04/10/20 Attend Phys: Сергей Zuniga MD Discharge: Date of : 50 Report #: [id number] indicated. 6. Deep vein thrombosis prophylaxis. She is on Lovenox. Thanks for this consultation. <ELECTRONICALLY SIGNED> By: Allan Jessica MD 04/14/20 0759 [id number] 1531Aamy Jessica MD /nt
--- NOTE | 2020-04-14 15:00 | NUR ---
HAS BEEN ON BIPAP AND HIGH FLOW O2 ALL DAY. CONTINUES ON REMDESIVIR,IV LASIX AND IV ANTIBIOTICS. MAY NEED INTUBATION IN NEXT 24-48HRS IF NO IMPROVEMENT. CM WILL FOLLOW.
--- NOTE | 2020-04-14 16:40 | NUR ---
MIDLINE ATTEMPTED X1 AND USUCCESSFUL TO LEFT CHEPHALIC. 20G 1 3/4 INCH PIC PLACED LEFT FA. GOOD BRISK BLOOD RETURN AND EASY FLUSH. TOLERATED WELL.
--- NOTE | 2020-04-14 17:55 | NUR ---
PT A&OX4 VSS. PT REMAINS ON BIPAP D/T INCREASED O2 NEEDS. PT ABLE TO ANSWER QUESTIONS APPROPRIATELY. IV X2 RAC/LAC PATENT. DRESSING C/D/I. PT NAPPED INTERMITTENTLY THIS SHIFT. PT DENIES PAIN. DGTR UPDATED BY PHONE X2 THIS SHIFT. IV ABX AND REMDESIVIR CONTINUED THIS SHIFT. PT REMAINS CONTINENT OF B/B. PT RESTS IN BED WITH CALL LIGHT AND CELL PHONE IN REACH. WILL CONTINUE TO MONITOR.
[2020-04-15] VITALS: BP 150/65
[2020-04-15 04:00] VITALS: BP 161/61
[2020-04-15 06:48] LABS: ABSOLUTE LYMPHOCYTES 0.4 thou/uL (0.8-5.3); ABSOLUTE MONOCYTES 0.5 thou/uL (0.0-1.2); ABSOLUTE NEUTROPHILS 9.6 thou/uL (1.6-8.1); BASOPHILS 0.1 %; EOSINOPHILS 0.3 %; HEMATOCRIT 39.6 % (37.0-47.0); HEMOGLOBIN 12.9 gm/dL (12.0-15.0); LYMPHOCYTES 3.5 %; MCH 31.2 pg (26.0-34.0); MCHC 32.7 g/dL (28.0-37.0); MCV 95.4 fL (80.0-100.0); MPV 8.4 fl. (7.2-11.1); NUCLEATED RBCS 0 /100WBC; PLATELET COUNT* 236 thou/uL (150-400); POLYS 91.1 %; RBC 4.15 mil/uL (4.20-5.00); RDW-CV 13.9 % (10.5-14.5); WBC 10.5 thou/uL (4.0-11.0)
--- NOTE | 2020-04-15 06:52 | NUR ---
ASSUMED PT CARE AT APPROX 1930. PT IS AWAKE AND ORIENTED X4. PT IS TRACING SR/SB ON THE BONDERIZER OPERATOR. PT IS ON THE BIPAP w/ FiO2 OF 80%. PT GETS SHORT OF AIR WITH ACTIVITY. spO2 MAINTAINED >90%. CONVALECENT PLASMA TRANSFUSED AND COMPLETED, NO TRANSFUSION REACTIONS NOTED. PT IS CLOSELY MONITORED. CALL LIGHT WITHIN REACH. HOURLY ROUNDING DONE FOR PT SAFETY. HIGH FALL PRECAUTIONS IN PLACE.
[2020-04-15 07:10] LABS: ALBUMIN 2.7 g/dL (3.4-5.0); CALCIUM 8.9 mg/dL (8.5-10.1); MAGNESIUM 2.2 mg/dL (1.8-2.4); POTASSIUM 3.7 mmol/L (3.5-5.1); TOTAL BILIRUBIN 0.6 mg/dL (<0.1-1.0); TOTAL PROTEIN 6.5 g/dL (6.4-8.2)
[2020-04-15 07:13] LABS: APTT 23.6 Seconds (25.0-31.3); INR 1.1; PROTIME 11.6 Seconds (9.20-11.50)
[2020-04-15 08:00] VITALS: BP 135/57
[2020-04-15 10:07] LABS: PREALBUMIN 19.7 mg/dL (18.0-35.7)
[2020-04-15 16:00] VITALS: BP 158/73
--- NOTE | 2020-04-15 16:00 | NUR ---
REMAINS ON BIPAP AND HIGH O2 NEED. ON IV REMDESIVIR,IV STEROIDS,IVABS. PER NURSING THEY HAVE SPOKEN WITH FAMILY TODAY FOR UPDATES ON PTS CONDITION.
--- NOTE | 2020-04-15 18:50 | NUR ---
PT A&OX4 VSS. PT REMAINS ON BIPAP, O2 REDUCED TO 65% BY RT. IV TO RAC PATENT AND SALINE LOCKED. IV TO LAC PATENT, FLUIDS RUNNING. PT DRANK 100% ENSURE WITH EVENING MEDICATIONS, NO DIFFICULTY. PT USED BEDPAN R/T WEAKNESS/BIPAP. PT RECEIVED FUROSEMIDE THIS EVENING, PUREWICK PLACED FOR PT COMFORT. IV ABX AND REMDESIVIR CONTINUED THIS SHIFT. FAMILY UPDATED X2 BY PHONE. PT RESTING IN ROOM WITH CALL LIGHT IN REACH. WILL CONTINUE TO MONITOR.
[2020-04-15 20:00] VITALS: BP 128/54
[2020-04-16] VITALS: BP 124/58
[2020-04-16 04:30] VITALS: BP 123/63
--- NOTE | 2020-04-16 04:45 | NUR ---
Assumed pt care at approx 1930. Pt is awake and oriented x4. Pt is tracing SR/SB on the jet piercer operator. spO2 remained between 92-94% on the BIPAP with fiO2 of 60%. pt still desaturates to the low 80's when the BIPAP is off. Pt is kept clean and dry. No acute changes throughout this shift. Optifoam applied to the bridge of the nose for comfort. Skin on the bridge of the nose is red from the BIPAP mask but is blanchable and is intact. No acute changes throughout this shift. Call light within reach. Hourly rounding done for pt safety.
[2020-04-16 05:15] LABS: ABSOLUTE LYMPHOCYTES 0.3 thou/uL (0.8-5.3); ABSOLUTE MONOCYTES 0.4 thou/uL (0.0-1.2); ABSOLUTE NEUTROPHILS 8.3 thou/uL (1.6-8.1); BASOPHILS 0.1 %; HEMATOCRIT 36.9 % (37.0-47.0); HEMOGLOBIN 12.3 gm/dL (12.0-15.0); LYMPHOCYTES 3.8 %; MCH 31.1 pg (26.0-34.0); MCHC 33.4 g/dL (28.0-37.0); MCV 93.3 fL (80.0-100.0); MONOCYTES 4.4 %; MPV 8.3 fl. (7.2-11.1); NUCLEATED RBCS 0 /100WBC; PLATELET COUNT* 230 thou/uL (150-400); POLYS 91.7 %; RBC 3.95 mil/uL (4.20-5.00); RDW-CV 13.9 % (10.5-14.5); WBC 9.1 thou/uL (4.0-11.0)
[2020-04-16 05:42] LABS: ALBUMIN 2.5 g/dL (3.4-5.0); CALCIUM 8.5 mg/dL (8.5-10.1); CREATININE 0.9 mg/dL (0.6-1.3); POTASSIUM 3.7 mmol/L (3.5-5.1); TOTAL BILIRUBIN 0.5 mg/dL (<0.1-1.0); TOTAL PROTEIN 6.3 g/dL (6.4-8.2)
[2020-04-16 08:40] VITALS: BP 126/51
[2020-04-16 12:51] VITALS: BP 131/63
[2020-04-16 16:18] VITALS: BP 138/46
--- NOTE | 2020-04-16 18:52 | NUR ---
PT REMAINED ALERT AND ORIENTED. PT RESTING IN BED. O2 MONITORED. HEART MONITORED. FALL RISK PRECAUTIONS IN PLACE. HOURLY ROUNDING COMPLETED. PUREWICK IN PLACE. WILL CONTINUE TO MONITOR.
[2020-04-17] VITALS: BP 153/56
[2020-04-17 04:00] VITALS: BP 131/60
[2020-04-17 05:32] LABS: ABSOLUTE LYMPHOCYTES 0.4 thou/uL (0.8-5.3); ABSOLUTE MONOCYTES 0.3 thou/uL (0.0-1.2); ABSOLUTE NEUTROPHILS 6.8 thou/uL (1.6-8.1); BASOPHILS 0.1 %; HEMATOCRIT 38.8 % (37.0-47.0); HEMOGLOBIN 12.9 gm/dL (12.0-15.0); LYMPHOCYTES 5.4 %; MCH 31.3 pg (26.0-34.0); MCHC 33.2 g/dL (28.0-37.0); MCV 94.4 fL (80.0-100.0); MONOCYTES 4.1 %; MPV 8.3 fl. (7.2-11.1); NUCLEATED RBCS 0 /100WBC; PLATELET COUNT* 228 thou/uL (150-400); POLYS 90.4 %; RBC 4.11 mil/uL (4.20-5.00); WBC 7.5 thou/uL (4.0-11.0)
[2020-04-17 05:59] LABS: CALCIUM 8.6 mg/dL (8.5-10.1); MAGNESIUM 2.2 mg/dL (1.8-2.4); POTASSIUM 3.8 mmol/L (3.5-5.1); TOTAL BILIRUBIN 0.7 mg/dL (<0.1-1.0); TOTAL PROTEIN 6.6 g/dL (6.4-8.2)
[2020-04-17 08:00] VITALS: BP 114/41
--- NOTE | 2020-04-17 10:40 | NUR ---
RECIEVED REPORT AROUND 714. ASSUMED CARE. VS AND ASSESSMENT CHARTED. HEATED HI FLOW NC INTACT. IVS INTACT. LEFT AND RIGHT AC. MEDS GIVEN THIS AM PER JUL. PT STATED "NO" ANY PAIN. PT LYING IN BED. BREAKFAST GIVEN TO PT. PT ATE MOST OF BREAKFAST. HEART MONITOR ATTACHED AT SR. CALL LIGHT WITHIN REACH. WILL CONTINUE TO MONITOR.
[2020-04-17 11:23] VITALS: BP 135/59
[2020-04-17 15:48] VITALS: BP 138/63
--- NOTE | 2020-04-17 18:26 | NUR ---
PT LYING IN BED. HEATED HI FLOW TOLERATED THIS SHIFT. O2 SAT STAYING IN THE MID 90'S. IV'S INTACT. MEDS PER MAR. NO REPORTS OF PAIN THIS SHIFT. HOURLY ROUNDING PERFORMED. HEART MONITOR ATTACHED AT SR. FAMILY UPDATED ON PT. CALL LIGHT WITHIN REACH. WILL CONTINUE TO MONITOR.
[2020-04-18] VITALS: BP 126/54
[2020-04-18 04:30] VITALS: BP 148/58
[2020-04-18 05:33] LABS: HEMATOCRIT 39.2 % (37.0-47.0); MCH 31.3 pg (26.0-34.0); MCHC 33.2 g/dL (28.0-37.0); MCV 94.1 fL (80.0-100.0); MPV 8.3 fl. (7.2-11.1); NUCLEATED RBCS 0 /100WBC; PLATELET COUNT* 224 thou/uL (150-400); RBC 4.17 mil/uL (4.20-5.00); RDW-CV 13.8 % (10.5-14.5); WBC 9.6 thou/uL (4.0-11.0)
[2020-04-18 05:47] LABS: ALBUMIN 2.7 g/dL (3.4-5.0); CALCIUM 8.6 mg/dL (8.5-10.1); CREATININE 0.9 mg/dL (0.6-1.3); TOTAL BILIRUBIN 0.6 mg/dL (<0.1-1.0); TOTAL PROTEIN 6.3 g/dL (6.4-8.2)
[2020-04-18 07:25] LABS: ABSOLUTE LYMPHOCYTES 0.4 thou/uL (0.8-5.3); ABSOLUTE MONOCYTES 0.8 thou/uL (0.0-1.2); ABSOLUTE NEUTROPHILS 8.4 thou/uL (1.6-8.1)
[2020-04-18 07:28] LABS: PLATELET ESTIMATE ADEQUATE
[2020-04-18 08:00] VITALS: BP 101/68
--- NOTE | 2020-04-18 09:56 | NUR ---
RECIEVED REPORT AROUND 0715. ASSUMED CARE. PT LYING IN BED THIS AM. VS AND ASSESSMENT CHARTED. BEDPAN USED THIS AM. NEW PURWICK IN PLACE. LEFT AC IV INTACT. RIGHT AC IV TAKEN OUT. INFILTRATED. HEART MONITOR ATTACHED AT . MEDS GIVEN THIS AM PER JUL. NO COMPLAINTS OF PAIN. PT STATED "NO" TO ANY PAIN. CALL LIGHT WITHIN REACH. WILL CONTINUE TO MONITOR.
[2020-04-18 12:59] VITALS: BP 124/64
[2020-04-18 16:00] VITALS: BP 139/61
--- NOTE | 2020-04-18 18:10 | NUR ---
PT MIDLINE INFILITRATED. ER, RN TRIED TO GET IV. WAS NOT SUCCESSFUL. PT CURRENTLY HAS NO IV. PT LYING IN BED. MEDS PER MAR. HOURLY ROUNDING PERFORMED. NO COMPLAINTS OF PAIN. SPUTUM TO BE COLLECTED. SPECIMEN CUP GIVEN TO PT. INSTRUCTED WHEN THEY COUGH AND HACK ANYTHING UP TO PUT IN THE SPECIMEN CUP. HEART MONITTOR ATTACHED AT SR. BIPAP AT NIGHT PER DR VAZQUEZ. HEATED HI FLOW NC O2 SATS IN MID 90'S. FAMILY UPDATED ON PT THIS SHIFT. CALL LIGHT WITHIN REACH. WILL CONTINUE TO MONITOR.
[2020-04-18 21:00] VITALS: BP 135/67
[2020-04-19] VITALS: BP 124/54
[2020-04-19 05:00] VITALS: BP 127/53
--- NOTE | 2020-04-19 09:13 | NUR ---
PATIENT HAS SLEPT WELL THROUGHOUT MOST OF THE NIGHT. VSS ON HEATED HIGH FLOW @ 50L. MEDICATIONS GIVEN ORDERED AND CHARTED. PATIENT HAS REMAINED ON BEDREST DURING THE NIGHT. ASSESSMENT CHARTED. PURE WIK IN PLACE. PATIENT ON BI-PAP AT HS. NEW IV INSERTED IN RIGHT HAND-SL. IV ABT GIVEN ORDERED WITHOUT ANY ADVERSE SIDE EFFECTS NOTED. PATIENT INSTRUCTED TO USE CALL LIGHT WHEN NEEDING ASSISTANCE. HOURLY ROUNDS MADE. WILL CONTINUE WITH PLAN OF CARE AND NURSING TO MONITOR.
[2020-04-19 10:00] VITALS: BP 124/58
[2020-04-19 10:53] LABS: ABSOLUTE LYMPHOCYTES 0.3 thou/uL (0.8-5.3); ABSOLUTE MONOCYTES 0.5 thou/uL (0.0-1.2); ABSOLUTE NEUTROPHILS 13.5 thou/uL (1.6-8.1); BASOPHILS 0.1 %; HEMATOCRIT 43.9 % (37.0-47.0); HEMOGLOBIN 14.3 gm/dL (12.0-15.0); LYMPHOCYTES 2.3 %; MCH 31.1 pg (26.0-34.0); MCHC 32.6 g/dL (28.0-37.0); MCV 95.1 fL (80.0-100.0); MONOCYTES 3.7 %; MPV 8.5 fl. (7.2-11.1); NUCLEATED RBCS 0 /100WBC; PLATELET COUNT* 258 thou/uL (150-400); POLYS 93.9 %; RBC 4.61 mil/uL (4.20-5.00); RDW-CV 13.5 % (10.5-14.5); WBC 14.4 thou/uL (4.0-11.0)
[2020-04-19 11:29] LABS: ALBUMIN 2.9 g/dL (3.4-5.0); CALCIUM 8.7 mg/dL (8.5-10.1); TOTAL BILIRUBIN 0.7 mg/dL (<0.1-1.0); TOTAL PROTEIN 6.6 g/dL (6.4-8.2)
[2020-04-19 15:00] VITALS: BP 138/63
--- NOTE | 2020-04-19 18:57 | NUR ---
RECEIVED REPORT. ASSUMED CARE OF PT AROUND 0730. PT A&O X4. AM ASSESSMENT AND VITALS COMPLETED CHARTED. MEDS PER EMAR. PT UP WITH ASSIST X1 TO BEDSIDE CHAIR AND COMMODE THIS SHIFT. TOLERATED WELL. PT USING PUREWICK WHILE IN BED. CHANGED THIS SHIFT. PT DENIED PAIN OR DISCOMFORT. REMAINS ON HEATED HIGH FLOW CANNULA THIS SHIFT, USING BIPAP AT NIGHT. PT STATES SHE IS FEELING BETTER OVERALL. PT CURRENTLY RESTING IN BED. CALL LIGHT IS WITHIN REACH. HOURLY ROUNDING PERFORMED. FALL PRECAUTIONS IN PLACE. UPDATE GIVEN TO FAMILY THIS AFTERNOON, SPOKE TO CLAUDIA.
[2020-04-19 19:22] VITALS: BP 142/71
[2020-04-19 22:10] VITALS: BP 120/64
[2020-04-20] VITALS: BP 113/72
[2020-04-20 04:00] VITALS: BP 127/55
--- NOTE | 2020-04-20 04:19 | NUR ---
PATIENT HAS REMAINED ALERT AND ORIENTED X 4 THROUGHOUT THE SHIFT AND RESTING QUIETLY ON HOURLY ROUNDS. VITAL SIGNS STABLE ON EITHER OPTI-FLOW OR BIPAP THIS SHIFT. USING PUR-WICK FOR UINARY CARE. CONTINOUS OXIMETRY. VITAL SIGNS STABLE, FALL PRECAUTIONS IN PLACE. REMAINS WEAK BUT ABLE TO TURN IN BED FOR CARES. MEDICATIONS PER ORDER. SB ON THE MONITOR. FALL PRECAUTIONS IN PLACE. CONTINUE TO MONITOR.
[2020-04-20 05:07] LABS: ABSOLUTE LYMPHOCYTES 0.4 thou/uL (0.8-5.3); ABSOLUTE MONOCYTES 0.3 thou/uL (0.0-1.2); ABSOLUTE NEUTROPHILS 9.9 thou/uL (1.6-8.1); BASOPHILS 0.1 %; HEMATOCRIT 39.2 % (37.0-47.0); LYMPHOCYTES 3.5 %; MCH 30.9 pg (26.0-34.0); MCV 93.5 fL (80.0-100.0); MONOCYTES 3.1 %; MPV 8.9 fl. (7.2-11.1); NUCLEATED RBCS 0 /100WBC; PLATELET COUNT* 188 thou/uL (150-400); POLYS 93.3 %; RBC 4.19 mil/uL (4.20-5.00); RDW-CV 13.7 % (10.5-14.5); WBC 10.6 thou/uL (4.0-11.0)
[2020-04-20 05:29] LABS: ALBUMIN 2.5 g/dL (3.4-5.0); CALCIUM 8.2 mg/dL (8.5-10.1); POTASSIUM 4.3 mmol/L (3.5-5.1); TOTAL BILIRUBIN 0.7 mg/dL (<0.1-1.0); TOTAL PROTEIN 5.4 g/dL (6.4-8.2)
[2020-04-20 08:22] VITALS: BP 138/58
[2020-04-20 15:52] VITALS: BP 138/70
[2020-04-20 18:07] VITALS: BP 133/58
--- NOTE | 2020-04-20 18:34 | NUR ---
RECEIVED REPORT. ASSUMED CARE OF PT AROUND 0730. PT A&O X4. AM ASSESSMENT AND VITALS COMPLETED CHARTED. MEDS PER EMAR. SHOVE UP IN PLACE. DENIED PAIN. PT WITH MORE ENERGY THIS SHIFT. UP TO BEDSIDE CHAIR THIS AM FOR BREAKFAST. ABLE TO TAKE A BED BATH. LINENS CHANGED. FAMILY VISITED OUTSIDE THE WINDOW. UPDATE GIVEN TO DAUGHTER. PT CURRENTLY RESTING IN BED. CALL LIGHT IS WITHIN REACH. HOURLY ROUNDING PERFORMED. FALL PRECAUTIONS IN PLACE.
[2020-04-20 20:45] VITALS: BP 114/60
[2020-04-21 00:26] VITALS: BP 112/84
[2020-04-21 04:00] VITALS: BP 115/52
--- NOTE | 2020-04-21 04:03 | NUR ---
PATIENT HAS REMAINED ALERT AND ORIENTED X 4 THROUGHOUT THE SHIFT AND RESTING QUIETLY ON HOURLY ROUNDS. A BIT MORE PEP TONIGHT. ANXIOUS TO START PLANS FOR HOME. CONTINUES ON OPTI-FLOW DURING THE DAY AND BIPAP AT HS. VITAL SIGNS STABLE. O2 SATS MID 90'S. ON CONTINUOUS OXIMETERY. FALL PRECAUTIONS IN PLACE. USING PURE-WICK DURING THE NIGHT. SMALL INCONT LOOSE BM THIS SHIFT. MEDS PER ORDER. CONTINUE TO MONITOR.
[2020-04-21 04:58] LABS: ABSOLUTE LYMPHOCYTES 0.4 thou/uL (0.8-5.3); ABSOLUTE MONOCYTES 0.3 thou/uL (0.0-1.2); ABSOLUTE NEUTROPHILS 10.4 thou/uL (1.6-8.1); BASOPHILS 0.1 %; HEMATOCRIT 37.7 % (37.0-47.0); HEMOGLOBIN 12.4 gm/dL (12.0-15.0); LYMPHOCYTES 3.3 %; MCV 93.8 fL (80.0-100.0); MONOCYTES 2.7 %; MPV 8.8 fl. (7.2-11.1); NUCLEATED RBCS 0 /100WBC; PLATELET COUNT* 156 thou/uL (150-400); POLYS 93.9 %; RBC 4.02 mil/uL (4.20-5.00); RDW-CV 13.6 % (10.5-14.5)
[2020-04-21 05:03] LABS: ALBUMIN 2.3 g/dL (3.4-5.0); CALCIUM 7.8 mg/dL (8.5-10.1); CREATININE 0.9 mg/dL (0.6-1.3); POTASSIUM 4.3 mmol/L (3.5-5.1); TOTAL BILIRUBIN 0.5 mg/dL (<0.1-1.0); TOTAL PROTEIN 5.2 g/dL (6.4-8.2)
[2020-04-21 08:15] VITALS: BP 121/61
[2020-04-21 12:00] VITALS: BP 120/66
[2020-04-21 16:00] VITALS: BP 131/64
--- NOTE | 2020-04-21 20:33 | NUR ---
PT HAS HAD MOMENTS OF FRUSTRATION TODAY R/T CARE. WAS ABLE TO SOOTHE AND ACCOMMADATE PT.PT RESTING COMFORTABLY AND APPRECIATIVE. PT REMAINS ON HEATED HI MADDIE,50L,60%. SR ON MONITOR. PT HAS HAD 2 INCIDENTS OF DIARRHEA AND MADE ME AWARE THAT THIS IS SOMETIMES NORMAL FOR HER. IMMODIUM AVAILABLE ON EMAR. NOTHING FURTHER AT THIS TIME.CLWR
[2020-04-21 22:42] VITALS: BP 114/63
[2020-04-22] VITALS: BP 127/56
[2020-04-22 04:00] VITALS: BP 90/53
[2020-04-22 05:18] LABS: HEMATOCRIT 39.4 % (37.0-47.0); MCH 30.5 pg (26.0-34.0); MCV 92.5 fL (80.0-100.0); MPV 9.1 fl. (7.2-11.1); NUCLEATED RBCS 0 /100WBC; PLATELET COUNT* 162 thou/uL (150-400); RBC 4.26 mil/uL (4.20-5.00); RDW-CV 13.6 % (10.5-14.5); WBC 12.3 thou/uL (4.0-11.0)
[2020-04-22 05:38] LABS: ALBUMIN 2.7 g/dL (3.4-5.0); CALCIUM 8.2 mg/dL (8.5-10.1); MAGNESIUM 2.3 mg/dL (1.8-2.4); POTASSIUM 4.1 mmol/L (3.5-5.1); TOTAL BILIRUBIN 0.8 mg/dL (<0.1-1.0); TOTAL PROTEIN 5.8 g/dL (6.4-8.2)
[2020-04-22 05:53] LABS: ABSOLUTE LYMPHOCYTES 0.4 thou/uL (0.8-5.3); ABSOLUTE MONOCYTES 0.5 thou/uL (0.0-1.2); ABSOLUTE NEUTROPHILS 11.4 thou/uL (1.6-8.1); PLATELET ESTIMATE ADEQUATE
[2020-04-22 05:54] LABS: ANISOCYTOSIS 1+; POIKILOCYTOSIS 1+
--- NOTE | 2020-04-22 07:20 | NUR ---
PT A&OX4, VSS ON 50L HEATED HI-FLOW OXYGEN, PT SR ON MONITOR, PURWICK IN PLACE D/T INCONTINANCE, PT SLEPT WELL, HOURLY ROUNDINGS COMPLETE.
[2020-04-22 09:30] VITALS: BP 128/57
[2020-04-22 17:05] VITALS: BP 116/57
[2020-04-22 20:00] VITALS: BP 130/55
[2020-04-23 00:04] VITALS: BP 110/58
[2020-04-23 05:25] VITALS: BP 125/58
[2020-04-23 06:40] LABS: ABSOLUTE LYMPHOCYTES 0.6 thou/uL (0.8-5.3); ABSOLUTE MONOCYTES 0.4 thou/uL (0.0-1.2); BASOPHILS 0.1 %; EOSINOPHILS 0.3 %; HEMATOCRIT 39.9 % (37.0-47.0); HEMOGLOBIN 13.3 gm/dL (12.0-15.0); MCH 31.1 pg (26.0-34.0); MCHC 33.2 g/dL (28.0-37.0); MCV 93.5 fL (80.0-100.0); MONOCYTES 3.7 %; MPV 9.5 fl. (7.2-11.1); NUCLEATED RBCS 0 /100WBC; PLATELET COUNT* 164 thou/uL (150-400); POLYS 90.9 %; RBC 4.26 mil/uL (4.20-5.00); RDW-CV 13.8 % (10.5-14.5)
[2020-04-23 07:05] LABS: ALBUMIN 2.8 g/dL (3.4-5.0); CALCIUM 8.2 mg/dL (8.5-10.1); CREATININE 0.8 mg/dL (0.6-1.3); POTASSIUM 4.1 mmol/L (3.5-5.1); TOTAL BILIRUBIN 0.7 mg/dL (<0.1-1.0); TOTAL PROTEIN 5.8 g/dL (6.4-8.2)
--- NOTE | 2020-04-23 07:34 | NUR ---
PT IS ABLE TO COMMUNICATE HER NEEDS TO STAFF EFFECTIVELY. SHE HAS DENIED THE NEED FOR PAIN MEDICATION UP TO THIS TIME. O2 WAS TITRATED DOWN SOME BY RT OVERNIGHT; TOLERATED WELL UP TO 0700 TODAY.
[2020-04-23 12:19] VITALS: BP 140/73
--- NOTE | 2020-04-23 14:00 | NUR ---
DISCUSSED WITH . PT.REMAINS ON HIGH O2. [facility] REFERRAL FAXED TO [facility]-[phone] TO SEE IF PT.WOULD QUALIFY.
[2020-04-23 15:29] VITALS: BP 125/53
[2020-04-23 19:50] VITALS: BP 120/54
[2020-04-24 00:08] VITALS: BP 118/42
--- NOTE | 2020-04-24 03:10 | NUR ---
ASSUMED CARE OF PT AT 1900. PT IS ALERT AND ORIENTED. VSS. PERRLA. NO COMPLAINTS OF PAIN. PTS O2 INCREASED TO 10 L. PT IS IN SINUS RYTHM ON THE TELEMETRY. PT IS RESTING COMFORTABLY IN BED. RESPIRATIONS ARE EVEN AND NONLABORED. WILL CONTINUE TO MONITOR PT.
[2020-04-24 04:11] VITALS: BP 141/42
[2020-04-24 05:13] LABS: ABSOLUTE LYMPHOCYTES 0.5 thou/uL (0.8-5.3); ABSOLUTE MONOCYTES 0.4 thou/uL (0.0-1.2); ABSOLUTE NEUTROPHILS 9.1 thou/uL (1.6-8.1); BASOPHILS 0.1 %; HEMATOCRIT 36.4 % (37.0-47.0); HEMOGLOBIN 12.3 gm/dL (12.0-15.0); LYMPHOCYTES 4.9 %; MCH 31.5 pg (26.0-34.0); MCHC 33.9 g/dL (28.0-37.0); MCV 92.9 fL (80.0-100.0); MONOCYTES 4.3 %; MPV 8.9 fl. (7.2-11.1); NUCLEATED RBCS 0 /100WBC; PLATELET COUNT* 129 thou/uL (150-400); POLYS 90.7 %; RBC 3.91 mil/uL (4.20-5.00); RDW-CV 13.6 % (10.5-14.5); WBC 10.1 thou/uL (4.0-11.0)
[2020-04-24 05:23] LABS: CALCIUM 8.4 mg/dL (8.5-10.1); CREATININE 0.9 mg/dL (0.6-1.3); MAGNESIUM 2.4 mg/dL (1.8-2.4); POTASSIUM 4.5 mmol/L (3.5-5.1)
[2020-04-24 08:00] VITALS: BP 126/63
[2020-04-24 12:08] VITALS: BP 130/71
[2020-04-24 16:00] VITALS: BP 101/51
--- NOTE | 2020-04-24 17:34 | NUR ---
PT. AOX4, VSS, DENIES PAIN OR DISCOMFORT, CALL LIGHT AND PERSONAL BELONGINGS PLACED WITH REACH. PT. OOB TO CHAIR, ANDRIY CARE PROVIDED. PT. BACK IN BED, RESTING WITH EYES CLOSED.
[2020-04-24 20:46] VITALS: BP 121/56
[2020-04-25] VITALS: BP 120/51
[2020-04-25 04:00] VITALS: BP 118/52
--- NOTE | 2020-04-25 04:02 | NUR ---
PT A&OX4, VSS ON 5L NC - CPAP WHILE SLEEING, NO C/O DISCOMFORT THIS SHIFT, PT SLEEPIN WELL, WILL CONTINUE TO MONIOR.
[2020-04-25 05:54] LABS: HEMATOCRIT 38.2 % (37.0-47.0); HEMOGLOBIN 12.5 gm/dL (12.0-15.0); MCH 30.9 pg (26.0-34.0); MCHC 32.8 g/dL (28.0-37.0); MCV 94.3 fL (80.0-100.0); NUCLEATED RBCS 0 /100WBC; PLATELET COUNT* 119 thou/uL (150-400); RBC 4.05 mil/uL (4.20-5.00); RDW-CV 13.9 % (10.5-14.5); WBC 9.9 thou/uL (4.0-11.0)
[2020-04-25 06:02] LABS: ALBUMIN 3.5 g/dL (3.4-5.0); CALCIUM 8.4 mg/dL (8.5-10.1); CREATININE 0.9 mg/dL (0.6-1.3); MAGNESIUM 2.4 mg/dL (1.8-2.4); POTASSIUM 3.9 mmol/L (3.5-5.1); TOTAL BILIRUBIN 0.9 mg/dL (<0.1-1.0); TOTAL PROTEIN 6.3 g/dL (6.4-8.2)
[2020-04-25 06:47] LABS: ABSOLUTE LYMPHOCYTES 1.4 thou/uL (0.8-5.3); ABSOLUTE MONOCYTES 0.3 thou/uL (0.0-1.2); ABSOLUTE NEUTROPHILS 8.2 thou/uL (1.6-8.1); HYPOCHROMASIA Occasional; PLATELET ESTIMATE DECREASED
[2020-04-25 08:30] VITALS: BP 131/55
--- NOTE | 2020-04-25 10:12 | NUR ---
ASSUMED CARE OF PT AT 0730. PT RESTING IN BED. PT UP TO CHAIR FOR BREAKFAST WITH SBA. WEAKNESS NOTED. A&0X4, DENIES ANY PAIN OR SHORTNESS OF BREATH AT REST. PT ON 5L NC SAT MID 90'S-COMPLAINS OF SHORTNESS OF BREATH WITH EXERTION. TRACING SR ON THE RISK MANAGEMENT SPECIALIST. PULM CONSULT IN PLACE. PT GOAL FOR TODAY IS TITRATE OXYGEN AND INCREASE ACTIVITY. AM ASSESSMENT CHARTED. MEDICATIONS PER JUL. PT REPOSITIONS SELF. HOURLY ROUNDING OBSERVED. BED IN LOW POSTIION. CALL LIGHT WITHIN REACH. WILL CONTINUE PLAN OF CARE.
[2020-04-25 11:55] VITALS: BP 130/78
--- NOTE | 2020-04-25 14:52 | NUR ---
CM spoke with Naty at [facility], per Naty, Pt will not qualify for [facility] she she is no longer requiring IVABX and her o2 needs are not high enough to qualify her.
--- NOTE | 2020-04-25 17:50 | NUR ---
PT A&OX4 VSS. PT ON 3L 02 BY TIGIST. PT REMAINS ON CONTINUOUS PULSE OX. 93-95% O2 SAT. PT SINUS RHYTHM ON MONITOR. PT REMAINS CONTINENT OF B/B. IV TO R HAND PATENT, DRESSING C/D/I, SALINE LOCKED. PT RESTS IN ROOM WITH CALL LIGHT IN REACH, WILL CONTINUE TO MONITOR
[2020-04-25 21:10] VITALS: BP 136/55
[2020-04-25 23:28] VITALS: BP 140/54
--- NOTE | 2020-04-26 04:29 | NUR ---
PT ALERT AND ORIENTED. SHE RECEIVED ANOTHER COVID TEST TO DETERMINE PLAN OF CARE CHANGE. SHE IS DOING WELL WITH 3L - NC OF O2. SHE REPORTED NO PAIN/NAUSEA/VOMITING/COUGH/DIARRHEA. SHE IS UP STANDBY TO USE THE COMMODE. SHE RECEIVED ALL MEDS SCHEDULED. OXYGEN TRIALS TO DETERMINE STATUS.
[2020-04-26 04:48] VITALS: BP 150/63
[2020-04-26 08:54] VITALS: BP 118/61
--- NOTE | 2020-04-26 11:22 | NUR ---
ASSUMED CARE OF PT AT 0730. PT SITTING UP IN THE CHAIR FOR BREAKFAST. A&0X4, DENIES ANY PAIN OR SHORTNESS OF BREATH AT REST. PT TRACING SR ON THE FURNACE ROOM SUPERVISOR. ON 3L NC SAT MID 90'S. CONTINUOUS PULSE OX IN PLACE. PT UP SBA TO BSC. PULM CONSULT IN PLACE. PT GOAL FOR TODAY IS CONTINUE TO TITRATE OXYGEN, OOB FOR MEALS AND INCREASE ACTIVITY. AM ASSESSMENT CHARTED. MEDICATIONS PER JUL. PT REPOSITIONS SELF. HOURLY ROUNDING OBSERVED. BED IN LOW POSITION. CALL LIGHT WITHIN REACH. WILL CONTINUE PLAN OF CARE.
[2020-04-26 12:19] VITALS: BP 132/76
[2020-04-26 16:00] VITALS: BP 139/62; BP 94/62
[2020-04-26 20:00] VITALS: BP 130/68
[2020-04-27 00:29] VITALS: BP 126/57
[2020-04-27 04:09] VITALS: BP 123/42
--- NOTE | 2020-04-27 05:26 | NUR ---
PATIENT SLEPT WELL DURING THIS SHIFT. PT WITH SALINE LOCK IN LT HAND. PT SR ON TECH ED TEACHER. PT DENIES PAIN/NAUSEA. PT ON O2 @ 1 LITER PER NASAL CANNULA. PT UP WITH STANDBY. PT HAS PUREWICK IN PLACE WITH 700ML OF YELLOW URINE OUT. FREQUENTLY USED ITEMS AND CALL LIGHT WITHIN REACH. SIDERAILS UPX2. WILL CONTINUE TO MONITOR.
[2020-04-27 06:16] LABS: ABSOLUTE LYMPHOCYTES 0.8 thou/uL (0.8-5.3); ABSOLUTE MONOCYTES 0.5 thou/uL (0.0-1.2); BASOPHILS 0.2 %; HEMATOCRIT 36.1 % (37.0-47.0); HEMOGLOBIN 12.2 gm/dL (12.0-15.0); LYMPHOCYTES 7.3 %; MCH 31.9 pg (26.0-34.0); MCHC 33.9 g/dL (28.0-37.0); MONOCYTES 5.3 %; NUCLEATED RBCS 0 /100WBC; PLATELET COUNT* 87 thou/uL (150-400); POLYS 87.2 %; RBC 3.84 mil/uL (4.20-5.00); RDW-CV 13.8 % (10.5-14.5); WBC 10.3 thou/uL (4.0-11.0)
[2020-04-27 06:32] LABS: CALCIUM 8.4 mg/dL (8.5-10.1); CREATININE 0.6 mg/dL (0.6-1.3); MAGNESIUM 2.4 mg/dL (1.8-2.4); POTASSIUM 4.2 mmol/L (3.5-5.1); TOTAL BILIRUBIN 0.8 mg/dL (<0.1-1.0); TOTAL PROTEIN 5.8 g/dL (6.4-8.2)
[2020-04-27 09:34] VITALS: BP 121/69
[2020-04-27] MEDS ORDERED: PREDNISONE 10 M10 MG PO (09:58)
[2020-04-27 12:03] VITALS: BP 129/70
[2020-04-27 15:48] VITALS: BP 134/35
[2020-04-27 20:00] VITALS: BP 134/67
[2020-04-28] VITALS: BP 136/50
[2020-04-28 04:00] VITALS: BP 123/50
--- NOTE | 2020-04-28 05:00 | NUR ---
ASSUMED PATIENT CARE AT 1900. PATIENT ALERT AND ORIENTED TIMES FOUR. NO COMPLAINTS OF PAIN OR DISCOMFORT NOTED. HOPES TO GO HOME TODAY. ANIMAL CARE SERVICE WORKER AND HOURLY ROUNDING COMPLETED DOCUMENTED.
[2020-04-28 05:46] LABS: ABSOLUTE LYMPHOCYTES 1.4 thou/uL (0.8-5.3); ABSOLUTE MONOCYTES 0.5 thou/uL (0.0-1.2); ABSOLUTE NEUTROPHILS 5.4 thou/uL (1.6-8.1); BASOPHILS 0.1 %; EOSINOPHILS 0.4 %; HEMATOCRIT 34.5 % (37.0-47.0); HEMOGLOBIN 11.6 gm/dL (12.0-15.0); LYMPHOCYTES 19.1 %; MCH 31.7 pg (26.0-34.0); MCHC 33.7 g/dL (28.0-37.0); MCV 94.1 fL (80.0-100.0); MONOCYTES 6.9 %; MPV 9.4 fl. (7.2-11.1); NUCLEATED RBCS 0 /100WBC; PLATELET COUNT* 63 thou/uL (150-400); POLYS 73.5 %; RBC 3.66 mil/uL (4.20-5.00); WBC 7.3 thou/uL (4.0-11.0)
[2020-04-28 06:01] LABS: CALCIUM 7.9 mg/dL (8.5-10.1); CREATININE 0.7 mg/dL (0.6-1.3); MAGNESIUM 2.3 mg/dL (1.8-2.4); POTASSIUM 4.3 mmol/L (3.5-5.1)
[2020-04-28 08:45] VITALS: BP 96/46
--- NOTE | 2020-04-28 11:30 | NUR ---
PT.ON 2L/NC OF O2. VERY WEAK AND DEBILITATED. ORDERED REPEAT COVID TEST FOR TODAY. IF NEG. WILL ORDER AN INPT.REHAB CONSULT.
[2020-04-28 13:34] VITALS: BP 128/68
--- NOTE | 2020-04-28 16:03 | NUR ---
PT HAS BEEN VERY DEPRESSED/FUSSY THIS SHIFT. SHE IS IRRITATED ABOUT HOW LONG IT TAKES NSG TO GET TO HER ROOM. I TOLD HER WE WERE D/Cing HER PUREWICK BECAUSE SHE NEEDS TO BUILD UP HER ENDOURACE OF GETTING UP TO BSC. SHE WAS UNHAPPY WITH THIS STATING IT TOOK NSG TOO LONG TO GET BACK TO HELP HER. I REASSURED HER THAT WE WOULD MAKE EVERY EFFORT TO GET TO HER TIMELY AND SHE SHOULD TRY TO CALL BEFORE IT WAS EMERGENT.
--- NOTE | 2020-04-28 17:27 | NUR ---
PT AO X4 THIS AM ON 1L NC BUT SATS WERE IN UPPER 80s SO I INCREASED HER TO 2L PER NC, SHE WEARS HOME CPAP AT HS. SHE SAT IN CHAIR FOR SEVERAL HOURS, EATING LUNCH AND THEN REQUESTING TO GET BACK TO BED. I EXPLAINED THAT SHE WOULD NO LONGER HAVE THE PUREWICK SHE SHOULD BE AMBULATING MORE TO BUILD ENDURANCE, SHE WAS NOT HAPPY TO HEAR THIS. SHE SLEPT SOUNDLY IN BED UNTIL DINNER. PT IS TO HAVE A RAPID COVID TEST FOR HER TO HAVE REHAB CONSULT.
[2020-04-28 18:36] VITALS: BP 129/70
[2020-04-28 20:00] VITALS: BP 130/62
[2020-04-29] VITALS: BP 134/78
[2020-04-29 04:00] VITALS: BP 131/51
--- NOTE | 2020-04-29 05:48 | NUR ---
ASSUMED CARE OF PT AFTER REPORT AT 1930. PT A&OX4. VSS. PHYSICAL ASSESSMENT COMPLETED AND CHARTED. PT ON O2 AT 2L NC. PT TRACING SR/SB ON TELE. PT UP WITH 1 ASSIST TO BSC. PT DENIES ANY PAIN. FALL PRECAUTIONS IN PLACE. CALL LIGHT WITHIN REACH.
[2020-04-29 08:00] VITALS: BP 130/68
[2020-04-29 12:05] VITALS: BP 125/68
--- NOTE | 2020-04-29 12:30 | NUR ---
COVID TEST NEG.NOW. DISCUSSED ON [place] THAT PT.CAN BE MOVED OUT OF ISOLATION. POTENTIALLY CAN BE MOVED TO REHAB UNIT AFTER REVIEWS PT.INFORMATION. PT.AGREEABLE.
[2020-04-29 15:38] VITALS: BP 123/51
--- NOTE | 2020-04-29 17:55 | NUR ---
ASSUMED CARE OF PATIENT THIS MORNING FROM NIGHT NURSE. PT IS PENDING TRANSFER TO REHAB. PT WAS EDUCATED ON POC AND DISCHARGE. WILL CONTINUE TO MONITOR.
--- NOTE | 2020-05-01 15:51 | CON ---
[address] [address] CONSULTATION Name: TORDEEPIKA RG Room: [address] IN .R.#: [id number] Admission: 04/10/20 Attend Phys: Сергей Zuniga MD Discharge: 04/29/20 Date of : 50 Report #: [id number] THIS REPORT FOR: //name// cc: Jessenia Spencer MD, Lin W. MD ~ DATE OF SERVICE: 04/29/2020 REQUESTING PHYSICIAN: Сергей Zuniga MD REASON FOR CONSULTATION: Thrombocytopenia. HISTORY OF PRESENT ILLNESS: The patient is a 69-year-old woman who was admitted to the hospital with shortness of breath, cough, fever. She was found to have pulmonary infiltrates. COVID-19 test negative. She has just used antibiotics for pneumonia. The patient's platelets were normal on admission. Gradually, the patient's platelet count decreased over the course of hospital stay, platelets on 04/22 were 164, on 04/25 were 87, today platelets are 63. Hematology consult is requested. The patient is in isolation. PAST MEDICAL HISTORY: Significant for COPD, morbid obesity, obstructive sleep apnea, hysterectomy, hypertension, lumbar radiculopathy. SOCIAL HISTORY: Nonsmoker, does not drink alcohol. FAMILY HISTORY: Noncontributory. PHYSICAL EXAMINATION: Unable to do physical examination because the patient is in isolation. Physical examination reviewed in the chart. I will do physical exam tomorrow when patient is out of isolation. According to nurse, the patient does not have any lymphadenopathy or bruising. Blood pressure 125/68, heart rate is 101, temperature 98.7. LABORATORY DATA: Hemoglobin 11.6, platelets 63, MCV 94. Sodium 137, potassium 4.3, chloride 103, BUN 22, creatinine 0.7. ASSESSMENT AND PLAN: Thrombocytopenia. The patient was on Lovenox, infection decreased dramatically. Anticoagulation was changed to Arixtra. HRT panel pending. Agree with holding heparin or heparin like anticoagulant. Recommend to order B12, folate, TSH. Continue to [place] [address] CONSULTATION Name: DEEPIKA LENTZ Room: [address]#: [id number] Admission: 04/10/20 Attend Phys: Сергей Zuniga MD Discharge: 04/29/20 Date of : 50 Report #: [id number] Thank you very much for allowing me to participate in care of this patient. We will follow the patient with you. <ELECTRONICALLY SIGNED> By: Kyung Weston MD 05/01/20 1551 1629 2059Kyung Weston MD /nt
== END 2020-04-29 21:54 | DRG 177 ==
LOC: M.ERS 13:35 → M.TBA-ER 15:42 → M.ORTHSURG 15:42
PROVIDERS: Internal Medicine Critical Care Medicine; Nurse Practitioner; Physician Assistant; ADMIT Internal Medicine; ATTEND Internal Medicine
PROC: 5A09357 Assistance with Respiratory Ventilation, Less than 24 Consecutive Hours, Continuous Positive Airway Pressure (ICD-10-PCS; principal; 2020-04-10)
PROC: 5A0935A Assistance with Respiratory Ventilation, Less than 24 Consecutive Hours, High Flow/Velocity Cannula (ICD-10-PCS; 2020-04-11)
PROC: XW033E5 Introduction of Remdesivir Anti-infective into Peripheral Vein, Percutaneous Approach, New Technology Group 5 (ICD-10-PCS; 2020-04-11)
PROC: XW13325 Transfusion of Convalescent Plasma (Nonautologous) into Peripheral Vein, Percutaneous Approach, New Technology Group 5 (ICD-10-PCS; 2020-04-12)
PROC: 5A0935A Assistance with Respiratory Ventilation, Less than 24 Consecutive Hours, High Flow/Velocity Cannula (ICD-10-PCS; 2020-04-12)
PROC: 5A09357 Assistance with Respiratory Ventilation, Less than 24 Consecutive Hours, Continuous Positive Airway Pressure (ICD-10-PCS; 2020-04-13)
PROC: 5A0935A Assistance with Respiratory Ventilation, Less than 24 Consecutive Hours, High Flow/Velocity Cannula (ICD-10-PCS; 2020-04-14)
PROC: 5A09457 Assistance with Respiratory Ventilation, 24-96 Consecutive Hours, Continuous Positive Airway Pressure (ICD-10-PCS; 2020-04-14)
PROC: 5A0935A Assistance with Respiratory Ventilation, Less than 24 Consecutive Hours, High Flow/Velocity Cannula (ICD-10-PCS; 2020-04-16)
PROC: 5A09357 Assistance with Respiratory Ventilation, Less than 24 Consecutive Hours, Continuous Positive Airway Pressure (ICD-10-PCS; 2020-04-17)
PROC: 5A0935A Assistance with Respiratory Ventilation, Less than 24 Consecutive Hours, High Flow/Velocity Cannula (ICD-10-PCS; 2020-04-17)
PROC: 5A09357 Assistance with Respiratory Ventilation, Less than 24 Consecutive Hours, Continuous Positive Airway Pressure (ICD-10-PCS; 2020-04-18)
PROC: 5A0935A Assistance with Respiratory Ventilation, Less than 24 Consecutive Hours, High Flow/Velocity Cannula (ICD-10-PCS; 2020-04-18)
PROC: 5A0935A Assistance with Respiratory Ventilation, Less than 24 Consecutive Hours, High Flow/Velocity Cannula (ICD-10-PCS; 2020-04-19)
PROC: 5A09357 Assistance with Respiratory Ventilation, Less than 24 Consecutive Hours, Continuous Positive Airway Pressure (ICD-10-PCS; 2020-04-19)
PROC: 5A0935A Assistance with Respiratory Ventilation, Less than 24 Consecutive Hours, High Flow/Velocity Cannula (ICD-10-PCS; 2020-04-20)
PROC: 5A09357 Assistance with Respiratory Ventilation, Less than 24 Consecutive Hours, Continuous Positive Airway Pressure (ICD-10-PCS; 2020-04-20)
PROC: 5A09357 Assistance with Respiratory Ventilation, Less than 24 Consecutive Hours, Continuous Positive Airway Pressure (ICD-10-PCS; 2020-04-21)
PROC: 5A0935A Assistance with Respiratory Ventilation, Less than 24 Consecutive Hours, High Flow/Velocity Cannula (ICD-10-PCS; 2020-04-21)
PROC: 5A0935A Assistance with Respiratory Ventilation, Less than 24 Consecutive Hours, High Flow/Velocity Cannula (ICD-10-PCS; 2020-04-22)
PROC: 5A09357 Assistance with Respiratory Ventilation, Less than 24 Consecutive Hours, Continuous Positive Airway Pressure (ICD-10-PCS; 2020-04-22)
PROC: 5A0935A Assistance with Respiratory Ventilation, Less than 24 Consecutive Hours, High Flow/Velocity Cannula (ICD-10-PCS; 2020-04-23)
PROC: 5A09357 Assistance with Respiratory Ventilation, Less than 24 Consecutive Hours, Continuous Positive Airway Pressure (ICD-10-PCS; 2020-04-23)
PROC: 5A0935A Assistance with Respiratory Ventilation, Less than 24 Consecutive Hours, High Flow/Velocity Cannula (ICD-10-PCS; 2020-04-24)
PROC: 5A09357 Assistance with Respiratory Ventilation, Less than 24 Consecutive Hours, Continuous Positive Airway Pressure (ICD-10-PCS; 2020-04-24)
PROC: 5A09357 Assistance with Respiratory Ventilation, Less than 24 Consecutive Hours, Continuous Positive Airway Pressure (ICD-10-PCS; 2020-04-25)
PROC: 5A0935A Assistance with Respiratory Ventilation, Less than 24 Consecutive Hours, High Flow/Velocity Cannula (ICD-10-PCS; 2020-04-25)
PROC: 5A09357 Assistance with Respiratory Ventilation, Less than 24 Consecutive Hours, Continuous Positive Airway Pressure (ICD-10-PCS; 2020-04-27)
PROC: 5A09357 Assistance with Respiratory Ventilation, Less than 24 Consecutive Hours, Continuous Positive Airway Pressure (ICD-10-PCS; 2020-04-28)
PROC: 5A0935A Assistance with Respiratory Ventilation, Less than 24 Consecutive Hours, High Flow/Velocity Cannula (ICD-10-PCS; 2020-04-29)
PROC: 5A09357 Assistance with Respiratory Ventilation, Less than 24 Consecutive Hours, Continuous Positive Airway Pressure (ICD-10-PCS; 2020-04-29)
DX: U07.1 COVID-19 (principal); J12.89 Other viral pneumonia; J80 Acute respiratory distress syndrome; J15.6 Pneumonia due to other Gram-negative bacteria; Z68.41 Body mass index [BMI] 40.0-44.9, adult; R65.10 Systemic inflammatory response syndrome (SIRS) of non-infectious origin without acute organ dysfunction; I74.9 Embolism and thrombosis of unspecified artery; G47.33 Obstructive sleep apnea (adult) (pediatric); E66.01 Morbid (severe) obesity due to excess calories; I95.9 Hypotension, unspecified; I10 Essential (primary) hypertension; J98.2 Interstitial emphysema; M79.7 Fibromyalgia; Z90.49 Acquired absence of other specified parts of digestive tract; Z90.710 Acquired absence of both cervix and uterus; Z98.49 Cataract extraction status, unspecified eye; Z79.899 Other long term (current) drug therapy

== ENCOUNTER 2020-04-29 17:44 | Inpatient (IN) | payer MEDICARE, OTHER ==
[~2020-04-29] VITALS: Ht 162.6 cm; Wt 109.4 kg
[~2020-04-29 17:44] MED LIST changes: +PREDNISONE 10 M10 MG PO
[2020-04-29 21:30] VITALS: BP 139/69
[2020-04-30 05:39] LABS: HEMATOCRIT 35.3 % (37.0-47.0); MCH 31.8 pg (26.0-34.0); MCV 93.8 fL (80.0-100.0); MPV 9.1 fl. (7.2-11.1); RBC 3.76 mil/uL (4.20-5.00); RDW-CV 13.8 % (10.5-14.5); WBC 7.3 thou/uL (4.0-11.0)
[2020-04-30 05:51] LABS: CREATININE 0.6 mg/dL (0.6-1.3); POTASSIUM 4.4 mmol/L (3.5-5.1)
[2020-04-30 08:00] VITALS: BP 105/87
[2020-04-30 19:30] VITALS: BP 111/56
[2020-05-01 07:30] VITALS: BP 111/49
[2020-05-01 10:44] LABS: ABSOLUTE EOSINOPHILS 0.1 thou/uL (0.0-0.7); ABSOLUTE MONOCYTES 0.7 thou/uL (0.0-1.2); ABSOLUTE NEUTROPHILS 8.1 thou/uL (1.6-8.1); BASOPHILS 0.1 %; EOSINOPHILS 1.5 %; HEMATOCRIT 37.9 % (37.0-47.0); HEMOGLOBIN 12.6 gm/dL (12.0-15.0); LYMPHOCYTES 9.9 %; MCH 31.2 pg (26.0-34.0); MCHC 33.2 g/dL (28.0-37.0); MONOCYTES 7.1 %; NUCLEATED RBCS 0 /100WBC; PLATELET COUNT* 80 thou/uL (150-400); POLYS 81.4 %; RBC 4.03 mil/uL (4.20-5.00); RDW-CV 14.4 % (10.5-14.5)
[2020-05-01 10:55] LABS: ALBUMIN 2.7 g/dL (3.4-5.0); CALCIUM 8.4 mg/dL (8.5-10.1); CREATININE 0.7 mg/dL (0.6-1.3); POTASSIUM 4.4 mmol/L (3.5-5.1); TOTAL BILIRUBIN 0.5 mg/dL (<0.1-1.0); TOTAL PROTEIN 5.7 g/dL (6.4-8.2)
[2020-05-01 19:30] VITALS: BP 109/54
[2020-05-02 08:00] VITALS: BP 113/61
[2020-05-02 20:00] VITALS: BP 118/56
[2020-05-03] VITALS (7 sets, daily range): BP systolic 90–127; BP diastolic 42–70
[2020-05-04 08:00] VITALS: BP 145/98
[2020-05-04 08:01] VITALS: BP 92/62
[2020-05-04 08:02] VITALS: BP 99/60
[2020-05-04 22:45] VITALS: BP 151/60
[2020-05-04 22:47] VITALS: BP 118/63
[2020-05-04 22:50] VITALS: BP 113/48
[2020-05-05 08:37] VITALS: BP 130/68
[2020-05-05 20:00] VITALS: BP 123/68
[2020-05-06 08:08] VITALS: BP 129/67
[2020-05-06 13:09] VITALS: BP 143/76; BP 153/74
[2020-05-06 20:00] VITALS: BP 123/65
[2020-05-07 04:43] LABS: HEMATOCRIT 31.1 % (37.0-47.0); HEMOGLOBIN 10.5 gm/dL (12.0-15.0); MCH 31.3 pg (26.0-34.0); MCHC 33.9 g/dL (28.0-37.0); MCV 92.6 fL (80.0-100.0); MPV 7.9 fl. (7.2-11.1); RBC 3.36 mil/uL (4.20-5.00); RDW-CV 14.3 % (10.5-14.5); WBC 4.5 thou/uL (4.0-11.0)
[2020-05-07 05:34] LABS: CALCIUM 7.9 mg/dL (8.5-10.1); CREATININE 0.5 mg/dL (0.6-1.3); POTASSIUM 3.9 mmol/L (3.5-5.1)
[2020-05-07 08:30] VITALS: BP 147/63
[2020-05-07 19:00] VITALS: BP 140/65
[2020-05-08 07:30] VITALS: BP 138/65
[2020-05-08 19:20] VITALS: BP 138/59
[2020-05-09 07:38] VITALS: BP 140/65
[2020-05-09 20:18] VITALS: BP 133/53
[2020-05-10 07:30] VITALS: BP 131/66
[2020-05-10 21:25] VITALS: BP 107/56
[2020-05-11 04:49] LABS: ABSOLUTE EOSINOPHILS 0.1 thou/uL (0.0-0.7); ABSOLUTE LYMPHOCYTES 0.9 thou/uL (0.8-5.3); ABSOLUTE MONOCYTES 0.4 thou/uL (0.0-1.2); ABSOLUTE NEUTROPHILS 1.7 thou/uL (1.6-8.1); BASOPHILS 0.3 %; EOSINOPHILS 2.9 %; HEMATOCRIT 30.1 % (37.0-47.0); HEMOGLOBIN 10.1 gm/dL (12.0-15.0); LYMPHOCYTES 30.2 %; MCH 31.5 pg (26.0-34.0); MCHC 33.5 g/dL (28.0-37.0); MCV 93.8 fL (80.0-100.0); MONOCYTES 11.9 %; MPV 7.4 fl. (7.2-11.1); NUCLEATED RBCS 0 /100WBC; PLATELET COUNT* 157 thou/uL (150-400); POLYS 54.7 %; RBC 3.21 mil/uL (4.20-5.00); RDW-CV 15.1 % (10.5-14.5); WBC 3.1 thou/uL (4.0-11.0)
[2020-05-11 05:18] LABS: ALBUMIN 2.3 g/dL (3.4-5.0); CALCIUM 8.2 mg/dL (8.5-10.1); CREATININE 0.5 mg/dL (0.6-1.3); TOTAL BILIRUBIN 0.4 mg/dL (<0.1-1.0); TOTAL PROTEIN 4.9 g/dL (6.4-8.2)
[2020-05-11 08:00] VITALS: BP 128/65
[2020-05-11 20:05] VITALS: BP 106/58
[2020-05-12 05:17] LABS: ABSOLUTE EOSINOPHILS 0.1 thou/uL (0.0-0.7); ABSOLUTE LYMPHOCYTES 0.9 thou/uL (0.8-5.3); ABSOLUTE MONOCYTES 0.4 thou/uL (0.0-1.2); ABSOLUTE NEUTROPHILS 1.6 thou/uL (1.6-8.1); BASOPHILS 0.4 %; EOSINOPHILS 2.7 %; HEMOGLOBIN 9.7 gm/dL (12.0-15.0); LYMPHOCYTES 30.6 %; MCH 31.3 pg (26.0-34.0); MCHC 33.4 g/dL (28.0-37.0); MCV 93.9 fL (80.0-100.0); MONOCYTES 13.2 %; MPV 7.1 fl. (7.2-11.1); NUCLEATED RBCS 0 /100WBC; PLATELET COUNT* 154 thou/uL (150-400); POLYS 53.1 %; RBC 3.09 mil/uL (4.20-5.00); RDW-CV 15.1 % (10.5-14.5); WBC 2.9 thou/uL (4.0-11.0)
[2020-05-12 05:43] LABS: ALBUMIN 2.2 g/dL (3.4-5.0); CALCIUM 7.9 mg/dL (8.5-10.1); CREATININE 0.5 mg/dL (0.6-1.3); POTASSIUM 3.9 mmol/L (3.5-5.1); TOTAL BILIRUBIN 0.4 mg/dL (<0.1-1.0); TOTAL PROTEIN 4.8 g/dL (6.4-8.2)
[2020-05-12 07:30] VITALS: BP 137/44
[2020-05-12 08:00] VITALS: BP 137/64
[2020-05-12 19:00] VITALS: BP 137/62
[2020-05-13 07:30] VITALS: BP 145/51
[2020-05-13 19:00] VITALS: BP 134/62
[2020-05-14 04:26] LABS: HEMATOCRIT 30.3 % (37.0-47.0); HEMOGLOBIN 10.1 gm/dL (12.0-15.0); MCH 31.5 pg (26.0-34.0); MCHC 33.4 g/dL (28.0-37.0); MCV 94.3 fL (80.0-100.0); MPV 7.5 fl. (7.2-11.1); RBC 3.21 mil/uL (4.20-5.00); RDW-CV 15.8 % (10.5-14.5)
[2020-05-14 04:50] LABS: CALCIUM 8.2 mg/dL (8.5-10.1); CREATININE 0.6 mg/dL (0.6-1.3); POTASSIUM 3.7 mmol/L (3.5-5.1)
[2020-05-14 08:00] VITALS: BP 135/85
[2020-05-14] MEDS ORDERED: MIDODRINE HCL 55 M1 PO (08:35)
[2020-05-14 13:43] VITALS: BP 135/85
[2020-05-14 14:46] VITALS: BP 135/85
[2020-05-14 14:47] VITALS: BP 135/85
[2020-05-14 15:23] VITALS: BP 135/85
== END 2020-05-14 15:40 | disposition home health service (06) | DRG 947 ==
LOC: M.REH 17:44
PROVIDERS: Internal Medicine; ADMIT Physical Medicine & Rehabilitation; ATTEND Physical Medicine & Rehabilitation
PROC: 5A09357 Assistance with Respiratory Ventilation, Less than 24 Consecutive Hours, Continuous Positive Airway Pressure (ICD-10-PCS; principal; 2020-04-30)
PROC: 5A09357 Assistance with Respiratory Ventilation, Less than 24 Consecutive Hours, Continuous Positive Airway Pressure (ICD-10-PCS; 2020-05-02)
PROC: 5A09357 Assistance with Respiratory Ventilation, Less than 24 Consecutive Hours, Continuous Positive Airway Pressure (ICD-10-PCS; 2020-05-05)
PROC: 5A09357 Assistance with Respiratory Ventilation, Less than 24 Consecutive Hours, Continuous Positive Airway Pressure (ICD-10-PCS; 2020-05-08)
PROC: 5A09357 Assistance with Respiratory Ventilation, Less than 24 Consecutive Hours, Continuous Positive Airway Pressure (ICD-10-PCS; 2020-05-09)
DX: R53.81 Other malaise (principal); J96.91 Respiratory failure, unspecified with hypoxia; U07.1 COVID-19; K21.9 Gastro-esophageal reflux disease without esophagitis; I10 Essential (primary) hypertension; E66.01 Morbid (severe) obesity due to excess calories; G89.29 Other chronic pain; M54.5 Low back pain; M79.7 Fibromyalgia; M54.16 Radiculopathy, lumbar region; I95.1 Orthostatic hypotension; Z90.710 Acquired absence of both cervix and uterus; Z98.49 Cataract extraction status, unspecified eye; Z79.899 Other long term (current) drug therapy

== ENCOUNTER → 2020-07-11 | Outpatient (CLI) | payer MEDICARE, OTHER ==
[~2020-07-11] MED LIST changes: +MIDODRINE HCL 55 M1 PO
== END ==
LOC: M.CT 10:54
PROVIDERS: ATTEND Internal Medicine Pulmonary Disease
DX: J47.9 Bronchiectasis, uncomplicated (principal); R06.02 Shortness of breath; J84.10 Pulmonary fibrosis, unspecified

== ENCOUNTER → 2020-09-18 | Outpatient (CLI) | payer MEDICARE, OTHER | LOC: M.CT 08:40 | PROVIDERS: ATTEND Internal Medicine Pulmonary Disease | DX: J47.9 Bronchiectasis, uncomplicated (principal); R93.89 Abnormal findings on diagnostic imaging of other specified body structures; J84.10 Pulmonary fibrosis, unspecified; K44.9 Diaphragmatic hernia without obstruction or gangrene ==

== ENCOUNTER 2020-12-06 09:40 | Emergency (ER) | payer MEDICARE, OTHER ==
[~2020-12-06] VITALS: Ht 162.6 cm; Wt 117.9 kg
[2020-12-06] MEDS ORDERED: ZPAK PO (10:44)
[2020-12-06] MEDS ORDERED: PREDNISONE 20 M20 M1 PO (10:44)
[2020-12-06 10:50] VITALS: BP 131/77
== END 2020-12-06 10:50 | disposition home or self-care (01) ==
LOC: M.ERS 09:40
DX: J06.9 Acute upper respiratory infection, unspecified (principal); Z20.822 Contact with and (suspected) exposure to COVID-19; I10 Essential (primary) hypertension; M79.7 Fibromyalgia; Z88.8 Allergy status to other drugs, medicaments and biological substances; Z90.710 Acquired absence of both cervix and uterus; Z98.890 Other specified postprocedural states; Z90.89 Acquired absence of other organs

== ENCOUNTER 2020-12-09 09:01 | Emergency (ER) | payer MEDICARE, OTHER ==
[~2020-12-09] VITALS: Ht 162.6 cm; Wt 117.9 kg
[2020-12-09 10:47] LABS: ABSOLUTE LYMPHOCYTES 0.7 thou/uL (0.8-5.3); ABSOLUTE MONOCYTES 0.5 thou/uL (0.0-1.2); ABSOLUTE NEUTROPHILS 3.6 thou/uL (1.6-8.1); BASOPHILS 0.5 %; EOSINOPHILS 0.5 %; HEMATOCRIT 36.8 % (37.0-47.0); HEMOGLOBIN 12.7 gm/dL (12.0-15.0); LYMPHOCYTES 14.9 %; MCHC 34.6 g/dL (28.0-37.0); MCV 92.3 fL (80.0-100.0); MONOCYTES 9.4 %; MPV 7.9 fl. (7.2-11.1); NUCLEATED RBCS 0 /100WBC; PLATELET COUNT* 216 thou/uL (150-400); POLYS 74.7 %; RBC 3.99 mil/uL (4.20-5.00); RDW-CV 13.9 % (10.5-14.5); WBC 4.9 thou/uL (4.0-11.0)
[2020-12-09 10:59] LABS: CALCIUM 8.8 mg/dL (8.5-10.1); CREATININE 0.9 mg/dL (0.6-1.3); POTASSIUM 3.6 mmol/L (3.5-5.1)
[2020-12-09] MEDS ORDERED: TESSALON PERLE100 M1 PO (11:15)
[2020-12-09 11:32] VITALS: BP 147/66
== END 2020-12-09 11:33 | disposition home or self-care (01) ==
LOC: M.ERS 09:01
PROVIDERS: Emergency Medicine Emergency Medical Services
DX: J06.9 Acute upper respiratory infection, unspecified (principal); I10 Essential (primary) hypertension; Z98.890 Other specified postprocedural states; Z90.710 Acquired absence of both cervix and uterus; Z88.6 Allergy status to analgesic agent; Z88.8 Allergy status to other drugs, medicaments and biological substances

== ENCOUNTER 2020-12-19 10:48 | Inpatient (IN) | payer MEDICARE, OTHER ==
[~2020-12-19] VITALS: Ht 162.6 cm; Wt 117.9 kg
--- NOTE | ~2020-12-19 | CON ---
[address] [address] CONSULTATION Name: DEEPIKA LENTZ Room: [place] [address] ADM IN [facility]#: [id number] Admission: 12/19/20 Attend Phys: Linnea Clayton MD Discharge: Date of : 50 Report #: [id number] THIS REPORT FOR: cc: Jessenia Spencer MD, Lin W. MD Blick, David R. MD [facility] ~ DATE OF CONSULTATION: 12/19/2020 CARDIOLOGY CONSULTATION HISTORY OF PRESENT ILLNESS: The patient is a 70-year-old white female who I was asked to see in the Emergency Room today after she was noted to be in atrial flutter. The history is obtained from the patient as well as some old records. The patient notes that she used Fen-Phen years ago. She apparently saw a embosser operator at that time who noted she had just a mild regurgitant valvular abnormality. No further cardiac workup or medications were required. She was not very active that time. She was doing well until the past several weeks. She has had an upper respiratory infection. She has been coughing. She has been sweating, with headaches. She actually went to the Emergency Room on one occasion several weeks ago and was sent home with steroids and a Z-KARLOS. However, she continued to feel ill and came back to the Emergency Room and was given an inhaler. She notes she went to bed last night and woke up this morning and felt somewhat short of breath. She has had some edema. She noticed her heart racing. Her drove her to the Emergency Room. She was found to be in atrial flutter. She subsequently converted to sinus rhythm. She denies history of exertional chest tightness, heart murmur. PAST MEDICAL AND SURGICAL HISTORY: 1. She has had previous cholecystectomy. 2. Cataract extraction. 3. Hip surgery. 4. Hysterectomy. 5. Hemicolectomy. 6. Hypertension. 7. Hyperlipidemia. No diabetes. MEDICATIONS: Include: 1. Lisinopril. 2. Neurontin. 3. Prilosec. 4. She was given Advicor in the past, but could not tolerate it. FAMILY HISTORY: Her [place] [address] CONSULTATION Name: DEEPIKA LENTZ Room: [address]#: [id number] Admission: 12/19/20 Attend Phys: Linnea Clayton MD Discharge: Date of : 50 Report #: [id number] SOCIAL HISTORY: She is . She and her live in [place]. No smoking or alcohol abuse. REVIEW OF SYSTEMS: She is overweight, being 5 feet 4 inches and 260 pounds. She snores at night. She uses a CPAP for sleep apnea. No history of stroke, GI bleeding, liver disease, kidney disease, psychiatric illness, chronic skin condition. PHYSICAL EXAMINATION: GENERAL: Revealed an overweight female, lying in bed. She appeared in no acute distress. VITAL SIGNS: She had a blood pressure of 130/70. Pulse was initially 150, it is now 70. HEENT: She was anicteric. Conjunctivae were pink. Mucosa was moist. NECK: Veins not distended. No carotid bruits. Neck supple. CHEST: Clear to auscultation. CARDIAC: Regular rate and rhythm. No significant murmur. ABDOMEN: Obese. EXTREMITIES: Had trace edema. SKIN: Cool and dry. NEUROLOGIC: Nonfocal. LABORATORY DATA: ECG on admission showed narrow complex tachycardia at 150 beats per minute consistent with atrial flutter with an incomplete right bundle branch block. After she converted, ECG shows a sinus rhythm with incomplete right bundle branch block. On her workup in the Emergency Room, she had a portable chest x-ray that showed cardiomegaly, otherwise clear lung navarrete. LABORATORY DATA: Sodium 137, creatinine 0.8. Troponin 0.06. BNP 640. TSH in last March was 1.2. Her white blood cell count 6.3, hematocrit 38.7. Her COVID antigen stat test on 12/06 was negative. IMPRESSION AND RECOMMENDATIONS: 1. Atrial flutter. Recommend echocardiogram. I would recommend starting sotalol and anticoagulation with Xarelto. 2. Hypertension. The patient is on an TWIN inhibitor. 3. Hyperlipidemia. The patient could not tolerate statin drugs. 4. [place] [address] CONSULTATION Name: TORDEEPIKA RAMSEYETTA Room: [address] IN [facility]#: [id number] Admission: 12/19/20 Attend Phys: Linnea Clayton MD Discharge: Date of : 50 Report #: [id number] 5. Sleep apnea. The patient uses a CPAP. 6. Recent upper respiratory infection. No evidence of pneumonia at this time. By: [id number] Alphonse Goins MD, FACC /nt
[~2020-12-19 10:48] MED LIST changes: +TESSALON PERLE100 M1 PO
[2020-12-19 10:53] VITALS: BP 115/69
[2020-12-19] MEDS ORDERED: ALBUTEROL NEB TX (11:02)
[2020-12-19 11:28] LABS: ABSOLUTE EOSINOPHILS 0.2 thou/uL (0.0-0.7); ABSOLUTE LYMPHOCYTES 1.3 thou/uL (0.8-5.3); ABSOLUTE MONOCYTES 0.6 thou/uL (0.0-1.2); ABSOLUTE NEUTROPHILS 4.2 thou/uL (1.6-8.1); BASOPHILS 0.5 %; EOSINOPHILS 2.5 %; HEMATOCRIT 38.7 % (37.0-47.0); HEMOGLOBIN 13.1 gm/dL (12.0-15.0); LYMPHOCYTES 20.5 %; MCH 31.4 pg (26.0-34.0); MCHC 33.9 g/dL (28.0-37.0); MCV 92.7 fL (80.0-100.0); MONOCYTES 9.5 %; MPV 7.9 fl. (7.2-11.1); NUCLEATED RBCS 0 /100WBC; PLATELET COUNT* 265 thou/uL (150-400); RBC 4.17 mil/uL (4.20-5.00); RDW-CV 13.7 % (10.5-14.5); WBC 6.3 thou/uL (4.0-11.0)
[2020-12-19 11:43] LABS: CALCIUM 8.7 mg/dL (8.5-10.1); CREATININE 0.8 mg/dL (0.6-1.3)
[2020-12-19 11:59] LABS: ALBUMIN 3.3 g/dL (3.4-5.0); MAGNESIUM 1.9 mg/dL (1.8-2.4); TOTAL BILIRUBIN 0.5 mg/dL (<0.1-1.0); TOTAL PROTEIN 6.6 g/dL (6.4-8.2)
--- NOTE | 2020-12-19 13:43 | EKG ---
[place] [address] ELECTROCARDIOGRAM REPORT Name: LENTZDEEPIKA IFRAH Room: [facility]#: [id number] Admission: 12/19/20 Attend Phys: Discharge: Date of : 50 Date of Service: 12/19/20 1135 Report #: [id number] THIS REPORT FOR: //name// [facility] ED Test Date: 2020-12-19 Test Time: 11:35:55 Pat Name: DEEPIKA LENTZ Department: Room: Gender: F Etcher Enameling: : 1950 Requested By: Paul Simms Order Number: [id number] MD: Jose R Goins Measurements Intervals [place] Rate: 74 P: 14 [place]: 147 QRS: -12 QRSD: 84 T: 0 QT: 349 QTc: 388 Interpretive Statements Sinus rhythm Inferior infarct, old Consider anterior infarct Compared to ECG 04/10/2020 13:51:06 Intraventricular conduction delay no longer present Myocardial infarct finding still present Electronically Signed On 12-19-2020 13:43:36 CDT by Jose R Goins [email or web address] <ELECTRONICALLY SIGNED> By: Jose R Goins MD, FAC 12/19/20 1343 1135 1135 Jose R Goins MD, [facility] /EPI
--- NOTE | 2020-12-19 15:14 | 2DMMODE ---
[place] [address] 2 D/M-MODE ECHOCARDIOGRAM Name: DEEPIKA LENTZ Room: [place] [address] ADM IN [facility]#: [id number] Admission: 12/19/20 Attend Phys: Linnea Clayton, Discharge: Date of : 50 Date of Service: 12/19/20 1514 Report #: [id number] THIS REPORT FOR: cc: Jessenia Spencer MD, Lin W. MD Blick,Jose R Cunha MD [facility] ~ APPROVED REPORT Study performed: 12/19/2020 14:14:07 EXAM: Comprehensive 2D, Doppler, and color-flow Echocardiogram Patient Location: In-Patient Room #: ER Status: routine BSA: 2.19 HR: 73 bpm BP: 110/55 mmHg Rhythm: NSR Other Information Study Quality: Good Indications Atrial Fibrillation 2D Dimensions IVSd: 8.28 (7-11mm) LVOT Diam: 19.81 (18-24mm) LVDd: 45.02 mm PWd: 8.14 (7-11mm) Ascending Ao: 31.25 (22-36mm) LVDs: 29.71 (25-40mm) Aortic Root: 29.75 mm Volumes Left Atrial Volume (Systole) LA ESV Index: 24.30 mL/m2 Aortic Valve AoV Peak Riley.: 1.25 m/s AO Peak Gr.: 6.22 mmHg LVOT Max P.78 mmHg AO Mean Gr.: 3.10 mmHg LVOT Mean P.58 mmHg LVOT Max V: 0.97 m/s AO V2 VTI: 26.15 cm LVOT Mean V: 0.57 m/s GENNY (VTI): 2.57 cm2 LVOT V1 VTI: 21.85 [place] [address] 2 D/M-MODE ECHOCARDIOGRAM Name: DEEPIKA LENTZ Room: [address] IN [facility]#: [id number] Admission: 12/19/20 Attend Phys: Linnea Clayton, Discharge: Date of : 50 Date of Service: 12/19/20 1514 Report #: [id number] Mitral Valve E/A Ratio: 1.31 MV Decel. Time: 194.66 ms MV E Max Riley.: 0.75 m/s MV PHT: 56.45 ms MVA (PHT): 3.90 cm2 TDI E/Lateral E': 6.82 E/Medial E': 6.25 Medial E' Riley.: 0.12 m/s Lateral E' Riley.: 0.11 m/s Pulmonary Valve PV Peak Riley.: 0.80 m/s PV Peak Gr.: 2.56 mmHg Tricuspid Valve RAP Estimate: 5.00 mmHg TR Peak Gr.: 24.50 mmHg RVSP: 29.00 mmHg PA Pressure: 29.00 mmHg Left Ventricle The left ventricle is normal size. There is normal LV segmental wall motion. There is normal left ventricular wall thickness. Left ventricular systolic function is normal. The left ventricular ejection fraction is within the normal range. LVEF is 55-60%. The left ventricular diastolic function is normal. Right Ventricle The right ventricle is normal size. The right ventricular systolic function is normal. Atria The left atrium size is normal. The right atrium size is normal. Aortic Valve The aortic valve is normal in structure. No aortic regurgitation is present. There is no aortic valvular stenosis. Mitral Valve The mitral valve is normal in structure. Trace mitral regurgitation. No evidence of mitral valve stenosis. Tricuspid Valve The tricuspid valve is normal in structure. Trace tricuspid regurgitation. [place] [address] 2 D/M-MODE ECHOCARDIOGRAM Name: DEEPIKA LENTZ Room: [address] IN [facility]#: [id number] Admission: 12/19/20 Attend Phys: Linnea Clayton, Discharge: Date of : 50 Date of Service: 12/19/20 1514 Report #: [id number] Pulmonic Valve Pulmonic valve is not well visualized. Trace pulmonic regurgitation. Great Vessels The aortic root is normal in size. IVC is normal in size and collapses >50% with inspiration. Pericardium There is no pericardial effusion. <Conclusion> Left ventricular systolic function is normal. The left ventricular ejection fraction is within the normal range. <ELECTRONICALLY SIGNED> By: Jose R Goins MD, FACC 12/19/20 1514 1514 1514 Jose R Goins MD, FACC /INF
--- NOTE | 2020-12-19 16:20 | EKG ---
[place] [address] ELECTROCARDIOGRAM REPORT Name: LENTZDEEPIKA IFRAH Room: [place] [address] ADM IN [facility]#: [id number] Admission: 12/19/20 Attend Phys: Linnea Clayton, Discharge: Date of : 50 Date of Service: 12/19/20 1121 Report #: [id number] THIS REPORT FOR: //name// [facility] ED Test Date: 2020-12-19 Test Time: 11:21:37 Pat Name: DEEPIKA LENTZ Department: Room: [place] [address] Gender: F Finish Off Operator: ELVIN : 1950 Requested By: Paul Simms Order Number: [id number] Reading MD: Jose R Goins Measurements Intervals [place] Rate: 143 P: 0 ME: 43 QRS: -3 QRSD: 80 T: 56 QT: 293 QTc: 452 Interpretive Statements atrial flutter Low voltage, precordial leads Left ventricular hypertrophy Compared to ECG 12/19/2020 11:01:04 no change Electronically Signed On 12-19-2020 16:20:14 CDT by Jose R Goins [email or web address] <ELECTRONICALLY SIGNED> By: Jose R Goins MD, [facility] 12/19/20 1620 1121 1121 Jose R Goins MD, [facility] /EPI
[2020-12-19 17:30] VITALS: BP 128/41
[2020-12-19 19:51] VITALS: BP 147/72
[2020-12-19 19:56] VITALS: BP 147/72
[2020-12-19 22:10] VITALS: BP 126/46
[2020-12-20 01:59] VITALS: BP 112/41
[2020-12-20 03:50] VITALS: BP 135/42
[2020-12-20 04:05] VITALS: BP 135/42
--- NOTE | 2020-12-20 09:19 | EKG ---
[place] [address] ELECTROCARDIOGRAM REPORT Name: DEEPIKA LENTZ Room: [place] [address] ADM IN [facility]#: [id number] Admission: 12/19/20 Attend Phys: Linnea Clayton, Discharge: Date of : 50 Date of Service: 12/20/20 0854 Report #: [id number] THIS REPORT FOR: //name// [facility] ED Test Date: 2020-12-20 Test Time: 08:54:57 Pat Name: DEEPIKA LENTZ Department: Room: [place] [address] Gender: F Division Leader: YOHANA : 1950 Requested By: Jose R Goins Order Number: [id number] Reading MD: Garret Santiago Measurements Intervals [place] Rate: 52 P: 15 OR: 153 QRS: -13 QRSD: 95 T: 1 QT: 458 QTc: 426 Interpretive Statements Sinus rhythm Inferior infarct, old Consider anterior infarct, old Compared to ECG 12/19/2020 11:35:55 No significant changes Electronically Signed On 12-20-2020 9:19:33 CDT by Garret Santiago [email or web address] <ELECTRONICALLY SIGNED> By: Michelle Santiago MD, [facility] 12/20/20 0919 0854 [id number] Michelle Santiago MD, [facility] /EPI
--- NOTE | 2020-12-20 09:19 | NUR ---
PT GIVEN BREAKFAST.
[2020-12-20 10:00] VITALS: BP 113/52
--- NOTE | 2020-12-20 13:10 | NUR ---
PT GIVEN LUNCH.
--- NOTE | 2020-12-20 16:55 | NUR ---
PT GIVEN DINNER.
[2020-12-20 17:34] VITALS: BP 109/60
[2020-12-20 19:50] VITALS: BP 109/60
[2020-12-21 00:45] VITALS: BP 105/43
[2020-12-21 04:00] VITALS: BP 109/43
[2020-12-21] MEDS ORDERED: SORINE 80 MG TA80 M1 PO (10:02)
[2020-12-21] MEDS ORDERED: XARELTO20 MG PO (10:02)
[2020-12-21 12:00] VITALS: BP 107/44
[2020-12-21 12:13] VITALS: BP 107/44
--- NOTE | 2020-12-21 14:11 | NUR ---
PATIENT VERBALIZED UNDERSTANDING OF DISCHARGE INSTRUCTIONS. IV D/C WITHOUT DIFFICULTY. TYLENOL GIVEN FOR HEADACH AND HELPFUL.RX GIVEN TO PATIENT WITH INSTRUCTIONS AND INFO. PATIENT INSTRUCTED TO CHECK B/P AND PULSE EVERY DAY AND RECORD. RHYTHM REMAINS SINUS NICOLE TODAY ON MONITOR. PATIENT LEFT VIA W/C TO FAMILY CAR TO HOME.
== END 2020-12-21 12:30 | disposition home or self-care (01) | DRG 309 ==
LOC: M.ERS 10:48 → M.TBA-ER 13:29 → M.2W 12-20 20:00
PROVIDERS: Emergency Medicine Emergency Medical Services; ADMIT Internal Medicine; ATTEND Internal Medicine
PROC: 5A2204Z Restoration of Cardiac Rhythm, Single (ICD-10-PCS; principal; 2020-12-19)
DX: I48.92 Unspecified atrial flutter (principal); Z68.41 Body mass index [BMI] 40.0-44.9, adult; J96.11 Chronic respiratory failure with hypoxia; I10 Essential (primary) hypertension; M79.7 Fibromyalgia; M54.16 Radiculopathy, lumbar region; E78.5 Hyperlipidemia, unspecified; E66.9 Obesity, unspecified; G47.30 Sleep apnea, unspecified; Z20.822 Contact with and (suspected) exposure to COVID-19; Z86.16 Personal history of COVID-19; Z99.81 Dependence on supplemental oxygen; Z90.710 Acquired absence of both cervix and uterus; Z90.49 Acquired absence of other specified parts of digestive tract; Z98.49 Cataract extraction status, unspecified eye; Z79.899 Other long term (current) drug therapy; Z88.8 Allergy status to other drugs, medicaments and biological substances

== ENCOUNTER → 2021-01-14 | Outpatient (CLI) | payer MEDICARE, OTHER ==
[~2021-01-14] MED LIST changes: +ALBUTEROL NEB TX; +LASIX 40 MG TAB40 MG PO; +SORINE 80 MG TA80 M1 PO; +VITAMIN D350 MC3 PO; +XARELTO20 MG PO; +ZESTORETIC 10-1 EACH PO
[2021-01-14 14:41] LABS: CALCIUM 9.1 mg/dL (8.5-10.1); POTASSIUM 4.5 mmol/L (3.5-5.1)
== END ==
LOC: M.LAB 13:45
PROVIDERS: ATTEND Nurse Practitioner
DX: R60.9 Edema, unspecified (principal)

== ENCOUNTER → 2021-06-18 | Outpatient (CLI) | payer MEDICARE, OTHER | LOC: M.RAD 08:35 → M.CT 09:00 → M.RAD 09:15 | PROVIDERS: ATTEND Internal Medicine | DX: Z12.31 Encounter for screening mammogram for malignant neoplasm of breast (principal) ==

== ENCOUNTER → 2021-06-18 | Outpatient (CLI) | payer OTHER | LOC: M.CT 08:41 | PROVIDERS: ATTEND Internal Medicine | DX: Z13.6 Encounter for screening for cardiovascular disorders (principal); I25.10 Atherosclerotic heart disease of native coronary artery without angina pectoris ==

== ENCOUNTER → 2021-06-25 | Outpatient (CLI) | payer MEDICARE, OTHER | LOC: M.ULTRA 09:41 | PROVIDERS: ATTEND Internal Medicine | DX: N28.1 Cyst of kidney, acquired (principal) ==